=== PATIENT | male | born 1995 | race African-American/Black ===

== ENCOUNTER 2025-08-05 22:50 | Emergency (ER) | payer OTHER, SELFPAY ==
[2025-08-05 22:51] VITALS: BP 137/90; PULSE 122; RESP 18; TEMP 36.8; O2SAT 100
--- NOTE | 2025-08-05 23:42 | PC.NURSE ---
facsimile machine operator gave pt ice pack at this time.
--- NOTE | 2025-08-06 02:12 | ED_ITS ---
HPI - Dental/Oral General Chief complaint: Dental/Oral Stated complaint: dental pain Time Seen by Provider: 08/06/25 02:06 Source: patient Mode of arrival: ambulatory Limitations: no limitations History of Present Illness HPI Narrative: 29-year-old male presenting for dental pain. Patient states that for the past 4 days, he has been having left frontal dental pain. He states that he was eating something a few days ago in his crown fell out. He went to see 1 of the emergency dentist but they were unable to give him his prescriptions as they did not cover Medicaid. He states he was was given prescriptions for clindamycin and ibuprofen. He is allergic to penicillins. Denies fevers, chills, difficulty swallowing. He has an appointment with his dentist on Friday to have the crown placed. Related Data Allergies Allergy/AdvReac Type Severity Reaction Status Date / Time Penicillins Allergy Unknown Verified 08/05/25 22:55 Review of Systems Review of Systems: Gen.: Denies fevers or chills Eyes: Denies eye pain or visual change ENT: Denies congestion Respiratory: Denies shortness of breath or cough CV: Denies chest pain or palpitations GI: Denies abdominal pain nausea, emesis or diarrhea denies burning, urgency, frequency or hematuria Musculoskeletal: Denies back pain or muscle pain Neuro: Denies numbness, tingling, weakness or focal weakness Skin: Denies rash Except as documented, all other systems reviewed and negative Exam Narrative: APPEARANCE: No acute distress, nontoxic, resting in bed HEENT: Normocephalic, atraumatic, OMM. Missing crown to tooth 10, no surrounding fluctuance RESPIRATORY: No respiratory distress CARDIOVASCULAR: Appears well perfused ABDOMINAL: Nondistended MUSCULOSKELETAl: Moves all extremities. No obvious deformities NEURO: Awake and alert. SKIN:: Warm, dry. No rashes lesions or abrasions PSYCHIATRIC: Normal affect/mood, Course Vital Signs Vital signs: Vital Signs Temperature 98.3 F 08/05/25 22:51 Pulse Rate 122 H 08/05/25 22:51 Respiratory Rate 18 08/05/25 22:51 Blood Pressure 137/90 08/05/25 22:51 Pulse Oximetry 100 08/05/25 22:51 Oxygen Delivery Room Air 08/05/25 22:51 Temperature 98.2 F 08/06/25 02:43 Pulse Rate 106 H 08/06/25 02:43 Respiratory Rate 16 08/06/25 02:43 Blood Pressure 138/99 H 08/06/25 02:43 Pulse Oximetry 99 08/06/25 02:43 Oxygen Delivery Room Air 08/06/25 02:35 MDM - Dental/Oral MDM Narrative Medical decision making narrative: 29-year-old male presenting for dental pain. On initial evaluation, patient was in no acute distress, afebrile, hemodynamically stable. He did have a missing crown he has noted above. I no areas of fluctuance or drainage. Vital signs stable except for noted mild tachycardia likely related to pain. Patient will be given prescriptions for clindamycin, Tylenol, ibuprofen. He has an appointment on Friday with his dentist to potentially have a crown replaced which I encouraged him to go to. Patient is agreeable to this plan. Given strict return precautions. Differential Diagnosis Differential diagnosis: Likely gingival abscess, dental caries, toothache, dental abscess and fracture of tooth Discharge Plan Discharge Clinical Impression: Toothache Patient Disposition: Home Condition: Stable Instructions: Antibiotic Form, Toothache (ED) Additional Instructions: Follow-up with your dentist on Friday as scheduled. Take clindamycin as prescribed. Take Tylenol and ibuprofen for ear pain. Return to the ED for any new or worsening symptoms. For pain, discomfort or temperature greater than or equal to 100.8 ?F please alternate the following 2 medications as needed. First medication- acetaminophen/Tylenol- 1000mg every 6-8 hours as needed for above indications. Second medication- ibuprofen/Motrin-600mg every 6-8 hours as needed for above indication. Patient Language: Armenian Prescriptions: New clindamycin HCl [Cleocin HCl] 300 mg capsule 300 mg PO BID Qty: 14 0RF acetaminophen [Tylenol Extra Strength] 500 mg tablet 500 mg PO Q6H PRN (Reason: fever or pain) Qty: 180 0RF ibuprofen 600 mg tablet 600 mg PO Q6H PRN (Reason: fever or pain) Qty: 90 0RF Follow-up/Referrals: PHYSICIAN,SYSTEMS SOFTWARE ENGINEER [Primary Care Provider, Internal Medicine]
--- OUTSIDE RECORDS SUMMARY | 2025-08-06 02:28 | XMS_ITS | Encounter Summary ---
Author Organization [facility] Address [address] [place] [address] Care Team Providers Care Director Of Content Marketing Name Role Phone Jeff Harris COST ACCOUNTING ANALYST-FOOT CASTER Primary Care Provider Encounter Details Date Type Department Care Team (Late st Contact Info) Description 08/17/2021 Telephone [facility] [address] [place] [address] Neris Landis MD [address] [phone] Social History Tobacco Use Types Packs/Day Years Used Date Smoking Tobacco: Never Smokeless Tobacco: Never Alcohol Use Standard Drinks/Week Comments No 0 (1 standard drink = 0.6 oz pur e alcohol) Sex and Gender Information Value Date Recorded Sex Assigned at Not on file Legal Sex Male 6:53 PM POLITICAL ANTHROPOLOGIST Gender Identity Not on file Sexual Orientation Not on file documented as of this encounter Plan of Treatment Not on file documented as of this encounter Visit Diagnoses Not on filedocumented in this encounter Additional Health Concerns Infection Onset Date Last Indicated Resolved Time COVID-19 Under Investigation 11/28/2022 11/28/2022 11/28/2022 10:05 PM POLITICAL ANTHROPOLOGIST COVID-19 Confirmed 11/28/2022 11/28/2022 4:33 AM POLITICAL ANTHROPOLOGIST documented as of this encounter Care Teams Director Of Content Marketing Relationship Specialty Start Date End Date Jeff Harris APRN-FOOT CASTER PCP - General 03/30/21 documented as of this encounter
--- OUTSIDE RECORDS SUMMARY | 2025-08-06 02:28 | XMS_ITS | Encounter Summary ---
Author Organization [facility] Address [address] [place] [address] Care Team Providers Care Managed Services Consultant Name Role Phone Jeff Harris UNIFORM FORCE CAPTAIN-TRUCK TECHNICIAN Primary Care Provider Encounter Details Date Type Department Care Team (Late st Contact Info) Description 07/13/2021 Telephone [facility] [address] [place] [address] Neris Landis MD [address] [phone] Social History Tobacco Use Types Packs/Day Years Used Date Smoking Tobacco: Never Smokeless Tobacco: Never Alcohol Use Standard Drinks/Week Comments No 0 (1 standard drink = 0.6 oz pur e alcohol) Sex and Gender Information Value Date Recorded Sex Assigned at Not on file Legal Sex Male 6:53 PM BIT GRINDER Gender Identity Not on file Sexual Orientation Not on file documented as of this encounter Plan of Treatment Not on file documented as of this encounter Visit Diagnoses Not on filedocumented in this encounter Additional Health Concerns Infection Onset Date Last Indicated Resolved Time COVID-19 Under Investigation 11/28/2022 11/28/2022 11/28/2022 10:05 PM BIT GRINDER COVID-19 Confirmed 11/28/2022 11/28/2022 4:33 AM BIT GRINDER documented as of this encounter Care Teams Managed Services Consultant Relationship Specialty Start Date End Date Jeff Harris APRN-TRUCK TECHNICIAN PCP - General 03/30/21 documented as of this encounter
--- OUTSIDE RECORDS SUMMARY | 2025-08-06 02:28 | XMS_ITS | Encounter Summary ---
Author Organization [facility] Address [address] [place] [address] Care Team Providers Care Academic Support Center Director Name Role Phone Jeff Harris HOURLY CAREGIVER-FLATWORK FEEDER Primary Care Provider Encounter Details Date Type Department Care Team (Late st Contact Info) Description 07/09/2021 Telephone [facility] [address] [place] [address] Neris Landis MD [address] [phone] Social History Tobacco Use Types Packs/Day Years Used Date Smoking Tobacco: Never Smokeless Tobacco: Never Alcohol Use Standard Drinks/Week Comments No 0 (1 standard drink = 0.6 oz pur e alcohol) Sex and Gender Information Value Date Recorded Sex Assigned at Not on file Legal Sex Male 6:53 PM CASKET UPHOLSTERER Gender Identity Not on file Sexual Orientation Not on file documented as of this encounter Plan of Treatment Not on file documented as of this encounter Visit Diagnoses Not on filedocumented in this encounter Additional Health Concerns Infection Onset Date Last Indicated Resolved Time COVID-19 Under Investigation 11/28/2022 11/28/2022 11/28/2022 10:05 PM CASKET UPHOLSTERER COVID-19 Confirmed 11/28/2022 11/28/2022 4:33 AM CASKET UPHOLSTERER documented as of this encounter Care Teams Academic Support Center Director Relationship Specialty Start Date End Date Jeff Harris APRN-FLATWORK FEEDER PCP - General 03/30/21 documented as of this encounter
--- OUTSIDE RECORDS SUMMARY | 2025-08-06 02:29 | XMS_ITS | Clinical Summary ---
Author Organization [facility] Address [address] [place] [address] Care Team Providers Care Investment Banking Associate Name Role Phone Jeff Harris SUPERINTENDENT MEASUREMENT-EDUCATIONAL ADVISER Primary Care Provider Source Comments [facility],non-owned Affiliates and Associated Physician Practices is amultiple site organization consisting of ambulatory clinics and hospital sitesin [place], [place], [place] and [place]. This disclosure is being madepursuant to the Care Everywhere program and may not contain all information available regarding this patient. Last updated 18.[facility] Allergies Active Allergy Reactions Criticality Noted Date Comments Coconut Oil Itching,Eye Discomfort 03/16/2021 Medications * This document contains information received from the source organization and may not represent a complete record from that organization. * Be aware that medications may not be up to date on this document. Alwaysverify current medications with the patient. pantoprazole EC (Protonix) 20 MG tabletIndications:Ga stroesophageal reflux disease without esophagitis Take 1 (one) tablet by mouth once daily 90 tablet 06/26/20 23 Active psyllium 48.57 % powderIndications:Pa in associated with defecation Take 3 g by mouth once daily 1254 g 3 06/26/20 23 Active Additional Information Patient not taking.Reported on 08/28/2023 bictegravir-emtricit abine-tenofovir (Biktarvy) 50-200-25 MGIndications:Human immunodeficiency virus (HIV) disease ([facility]) Take 1 (one) tablet by mouth once daily 30 tablet 3 08/28/20 23 Active sulfamethoxazole-tri methoprim (Bactrim; Septra) 400-80 MG tabletIndications:AI DS (acquired immune deficiency syndrome) (HCC) Take 1 (one) tablet by mouth once daily 30 tablet 3 08/28/20 23 Active itraconazole (Sporanox) 10 MG/ML oral solutionIndications: Disseminated histoplasmosis,Mesen teric lymphadenopathy TAKE 20 ML BY MOUTH TWICE DAILY 1200 mL 3 08/28/20 23 Active sertraline (Zoloft) 50 MG tabletIndications:Ma gisel depressive disorder, single episode with anxious distress Take 0.5 (one-half) tablet by mouth once daily for 7 days, THEN 1 (one) tablet once daily for 83 days. 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 Reports anorexia, insomnia, and lack of motivation towards Pleasurable things. Assessment & Plan (11/21/2022 9:17 AM WRAPPER HAND): Discussed need for sleep hygiene, regular exercise, and healthful diet Encouraged regualr talk therapy: Refer to [facility] Discussed resuming sertraline: Pt to consider Assessment & Plan (11/13/2021 10:15 AM WRAPPER HAND): Begin Fluoxietine: FU in 3wk, 6wk, and three months to efficacy Begin talk therapy Gastroesophageal reflux disease without esophagi tis 05/03/2021 Assessment & Plan (11/21/2022 9:15 AM WRAPPER HAND): DC omeprazole and begin pantoprazole Discussed importance of GERD-friendly diet and eating habits Assessment & Plan (05/03/2021 1:05 PM CDT): Omeprazole 20mg Daily Dietary change Grade IV hemorrhoids 04/12/2021 Assessment & Plan (04/12/2021 12:33 PM CDT): Continue Sitz bath, witch mario, and cool compress GI Consult at colonoscopy appt/ surg removal Colitis 04/12/2021 Assessment & Plan (11/13/2021 10:13 AM WRAPPER HAND): continue current Tx, food journal,and isolation of triggers Keep FU appts with GI and Colorectal Vaccine counseling 04/12/2021 Overview (04/12/2021): Pt resistent to COVID vax rekated to fear Major Appliance Assembly Supervisor to risk VS bebefit of vaccine Vs Infection Assessment & Plan (11/21/2022 9:17 AM WRAPPER HAND): Need pediatric record for HPV sent, Pt to complete Discussed risk V benefits of COVID vaccines Abscess of anal and rectal regions 03/16/2021 Assessment & Plan (11/13/2021 10:12 AM WRAPPER HAND): I&D Augmentin X7 days Discussed home wound care, S&S of infection, etc. Assessment & Plan (05/03/2021 1:00 PM CDT): I&D new abscess ABX tx Keep appt with colorectal Immunizations Immunization Administration Dates Next Due INFLUENZA VACCINE, TRIV. (AF LURIA, FLUZONE TRIVALENT; 6MO+) (IIV3) 08/14/2018 Covid Moderna primary monova lent 12+ yr 0.5mL 08/12/2021,07/15/2021 DTaP VACCINE IM (6wk-6yrs) 04/26/2003,,09/26/1998,04/05,01/06/1998,1997 FLU, HISTORIC VACCINE 07/25/2009 HEP A PED/ADULT VACCINE 06/03/2008,05/27/2006 HEP A PEDS 2 DOSE 06/03/2008,05/27/2006 HEP B VACCINE, PED/ADOL 1997,1997 HIB Hep B 04/05/1998 HIB VACCINE 09/26/1998,01/06/1998,1997 Hep B, Adjuvanted 01/31/2023 Human Papilloma Virus Nineva lent Vaccine 08/28/2023,01/31/2023,12/06/2022 INFLUENZA VACCINE 09/11/2021,07/25/2009 INFLUENZA VACCINE, QUADR. (F LUZONE; FLULAVAL; FLUARIX; AFLURIA QUADRIVALENT; 6MO+), 0.5 ML (IIV4) 08/28/2023 MENINGOCOCCAL ACWY (MCV4P) VAC IM 02/14/2009 MENINGOCOCCAL ACWY MENVEO 05/22/2012 MMR VACCINE 05/16/2003,05/05/2002,09/26/1998 Meningococcal ACWY (Menquadfi) Vac IM 01/31/2023 ,12/06/2022 PNEUMOCOCCAL PCV20 CONJ VAC IM 12/06/2022 PNEUMOCOCCAL PCV7 CONJ, PEDS 05/05/2002,02/17/20 01 POLIO IPV 04/26/2003, 2,04/05/1998,01/06,1997 TDAP (7yrs+) 11/12/2021 TDAP, HISTORIC VACCINE 05/22/2012,02/14/2009 VARICELLA 06/03/2008,09/26/1998 iNFLUENZA VACCINE, RECOM-STRANGE, QUADR. (FLUBLOCK QUADRIVALENT; 18Y+) (RIV4) 11/20/2022 Family History Medical History Relation Name Comments Hyperlipidemia Father Hypertension Father Hypertension Mother Relation Name Status Comments Brother Alive Father Alive Maternal Grandfather Alive Maternal Grandmother Alive Mother Alive Paternal Grandfather Paternal Grandmother Sister 1 Alive Sister 2 Alive Social History Tobacco Use Types Packs/Day Years Used Date Smoking Tobacco: Never Smokeless Tobacco: Never Tobacco Cessation:Counseling Given: Not Answered Alcohol Use Standard Drinks/Week Comments No 0 (1 standard drink = 0.6 oz pur e alcohol) AUDIT-C Answer Date Recorded Q1: How often do you have a drink containing alcohol? Never 12/28/2022 Q2: How many drinks containi ng alcohol do you have on a typical day when you are drinking? Patient does not drink Q3: How often do you have si x or more drinks on one occasion? Never 12/28/2022 Overall Financial Resource Strain (CARDIA) Answe r Date Recorded How hard is it for you to pa y for the very basics like food, housing, medical care, and heating? Patient declined 01/16/2023 PHQ-2 Answer Date Recorded Patient Health Questionnaire-2 Score 2 12/11/2023 [facility] - Occupational Stress Questionnaire Answer Date Recorded Do you feel stress - tense, restless, nervous, or anxious, or unable to sleep at night because your mind is troubled all the time - these days? Patient declined 01/16/2023 Hunger Vital Sign Answer Date Recorded Within the past 12 months, y ou worried that your food would run out before you got the money to buy more. Patient declined Within the past 12 months, t he food you bought just didn't last and you didn't have money to get more. Patient declined 03/2023 PRAPARE - Transportation Answer Date Re corded In the past 12 months, has l ack of transportation kept you from medical appointments or from getting medications? Patient declined 01/16/2023 In the past 12 months, has l ack of transportation kept you from meetings, work, or from getting things needed for daily living? Patient declined 01/16/2023 Housing Stability Vital Sign Answer Ken e Recorded In the last 12 months, was t here a time when you were not able to pay the mortgage or rent on time? Patient refused 01/17/20 23 In the last 12 months, how many places have you lived? 1 01/16/2023 In the last 12 months, was t here a time when you did not have a steady place to sleep or slept in a retirement (including now)? Patient refused 01/16/2023 Sex and Gender Information Value Date Recorded Sex Assigned at Not on file Legal Sex Male 6:53 PM WRAPPER HAND Gender Identity Not on file Sexual Orientation Not on file Last Filed Vital Signs Vital Sign Reading Time Taken Comments Blood Pressure 114/75 12/11/2023 8:25 AM WRAPPER HAND Pulse 65 12/11/2023 8:25 AM WRAPPER HAND Temperature 36.4 C (97.6 F) 12/11/2023 8:25 AM WRAPPER HAND Respiratory Rate 18 08/28/2023 9:39 AM WRAPPER HAND Oxygen Saturation 99% 08/28/2023 9:39 AM WRAPPER HAND Inhaled Oxygen Concentration - - Weight 88.9 kg (196 lb) 12/11/2023 8:25 AM WRAPPER HAND Height 160 cm (5' 3) 08/28/2023 9:39 AM WRAPPER HAND Body Mass Index 34.72 08/28/2023 9:39 AM WRAPPER HAND Plan of Treatment Health Maintenance Due Date Last Done Comments ZOSTER VACCINE (1 of 2) 2016 COVID-19 VACCINE (3 - Moderna risk series) 09/09/2021 08/12/2021, 07/15/2021 DEPRESSION SCREENING 10/13/2024 12/11/2023, 08/18/2023, 08/18/2023, Additional history exists INFLUENZA VACCINE (#1) 2025 , 11/20/2022, 09/11/2021, Additional history exists MENINGOCOCCAL GROUPS A/C/Y/W VACCINE (4 - Risk 2-dose series) 02/01/2028 01/31/2023, 12/06/2022, 05/22/2012, Additional history exists DTAP/TDAP/TD VACCINES (9 - Td or Tdap) 11/12/2031 11/12/2021, 05/22/2012, 02/14/2009, Additional history exists HIB VACCINE Completed 09/26/1998, 03/14, 01/06/1998, Additional history exists HEPATITIS C SCREENING Completed 12/06/2022 PNEUMOCOCCAL VACCINE Completed 12/06/2022, 05/05/2002, 02/16/2001 HEPATITIS B VACCINE Completed 01/31/2023, 04/05/1998, 1997, Additional history exists HPV VACCINE Completed 08/28/2023, 01/12, 12/06/2022 MENINGOCOCCAL (Group B) VACCINE SHARED DECISION-MAKING Aged Out No longer eligible based on patient's age to complete this topic Goals Goal Patient Goal Type Associated Problems Recent Progress Patient-Stated? Author Safety General On track( 12:58 PM CDT) Essie Greco, RN Note: Expected end date: ongoing Interventions: Be aware of medications that could predispose you to falling Wear non-skid/rubber sole footwear Wear glasses/hearing aid Medication Management General On track( 12:58 PM CDT) Essie Greco, RN Note: Expected end date: ongoing Interventions: Take all medications as prescribed Let your doctor know right away about any changes in your medications Make sure to request a refill of your medication at least one week prior to your last dose Try the following to manage nausea: Plan when to eat and drink Eat small meals and snacks Have food and drinks that are warm or cool Talk with your doctor or nurse about medications you can take Procedures Procedure Name Priority Date/Time Associated Diagnosis Comments HEPATITIS C AB W/RFLX TO HCV RNA QN PCR Routine 12/06/2022 12:00 PM WRAPPER HAND Routine screening for STI (sexually transmitted infection) Immunity status testing from Last 3 Months or Most Recently Relevant to Health Maintenance Results * Hep C Antibody with reflex ([facility]) (12/06/2022 12:00 PM WRAPPER HAND) Hepatitis C Antibody NON-REACTI VE NON-REACT [facility] Signal to Cut-Off 0.29 <1.00 [facility] Comment: HCV antibody was non-reactive. There is no laboratory evidence of HCV infection. In most cases, no further action is required. However, if recent HCV exposure is suspected, a test for HCV RNA (test code 79809) is suggested. For additional information please refer to http://education.[employer]/faq/LPJ86w7 (This link is being provided for informational/ educational purposes only.) Test Performed at: [facility] [id number] [id number] SUSANA NAQVI MD Blood BLOOD SPECIMEN / Unknown 12/06/2022 12:00 PM WRAPPER HAND 12/07/2022 6:28 AM WRAPPER HAND us Aye VO LAB - CHEMISTRY ORDERAB LES Final Result [facility] [address] [place] [address] from Last 3 Months or Most Recently Relevant to Health Maintenance Advance Directives * Full Code (Latest Code Status on File) Date Activated Date Inactivated Comments 12/27/2022 10:18 PM 01/17/2023 6:06 PM * Full Code Date Activated Date Inactivated Comments 03/16/2021 2:48 AM 03/16/2021 4:17 PM Care Teams Investment Banking Associate Relationship Specialty Start Date End Date Jeff Harris APRN-CNP PCP - General 03/30/21
--- OUTSIDE RECORDS SUMMARY | 2025-08-06 02:29 | XMS_ITS | Encounter Summary ---
Author Organization [facility] Health Address [address] [place] [address] Care Team Providers Care Haul Driver Name Role Phone StevenJeff CERTIFIED GENETIC COUNSELOR-TRAINING ADMINISTRATOR Primary Care Provider Encounter Details Date Type Department Care Team (Late st Contact Info) Description 03/11/2023 Telephone [facility] - Centralized Scheduling [address] [place] [phone] Rajendra Glynn MD [address] [facility] [place] [address] Social History Tobacco Use Types Packs/Day [...] Patient declined 01/16/2023 PHQ-2 Answer Date Recorded PHQ2 TOTAL SCORE 0 03/06/2023 [place] [facility] - Occupational Stress [...] place to sleep or slept in a senior living (including now)? Patient refused 01/16/2023 Sex and Gender Information Value Date Recorded Sex Assigned at Not on file Legal Sex Male 6:53 PM PRODUCT DEVELOPMENT CARPENTER Gender Identity Not on file Sexual Orientation Not on file COVID-19 Exposure Response Date Recorded In the last 10 days, have yo u been in contact with someone who was confirmed or suspected to have Coronavirus/COVID-19? No / Unsure 03/06/2023 9:30 AM CDT documented as of this encounter Functional Status * Is person deaf or have serious hearing difficulty? Answer Date of Assessment Author No 02/03/2023 1:11 PM CDT Aye Yoon RN * Is person blind or have serious difficulty seeing? Answer Date of Assessment Author No 02/03/2023 1:11 PM CDT Aye Yoon RN * Does person have serious difficulty walking/climbing stairs? Answer Date of Assessment Author No 02/03/2023 1:11 PM CDT Aye Yoon RN * Does person have difficulty dressing/bathing? Answer Date of Assessment Author No 02/03/2023 1:11 PM CDT Aye Yoon RN * Does person have difficulty doing errands alone? Answer Date of Assessment Author No 02/03/2023 1:11 PM CDT Aye Yoon RN documented as of this encounter Mental Status * Does person have difficulty concentrating/remembering/making decisions? Answer Entry Date Author No 02/03/2023 1:11 PM CDT Aye Yoon RN documented in this encounter Miscellaneous Notes * Telephone Encounter - Lois Fenton - 03/11/2023 12:32 PM CDT Pt Barney wanted the To give him a call he didn't state why just that he thought the Might have called him. I checked his chart I didn't find any documentation stating if the Called him. Pt callback is [phone] documented in this encounter Plan of Treatment Not on file documented as of this encounter Goals Goal Patient Goal Type Associated Problems Recent Progress Patient-Stated? Author Safety General On track( 12:58 PM CDT) No Essie Vela RN Note: Expected end date: ongoing Interventions: Be aware of medications that could predispose you to falling Wear non-skid/rubber sole footwear Wear glasses/hearing aid Medication Management General On track( 12:58 PM CDT) Essie Greco RN Note: Expected end date: ongoing Interventions: [...] or nurse about medications you can take documented as of this encounter Visit Diagnoses Not on filedocumented in this encounter Care Teams Haul Driver Relationship Specialty Start Date End Date Jeff Harris APRN-MICHAEL PCP - General 03/30/21 documented as of this encounter
--- OUTSIDE RECORDS SUMMARY | 2025-08-06 02:29 | XMS_ITS | Encounter Summary ---
Author Organization [facility] Address [address] [facility] [place] [address] Care Team Providers Care Circuit Recorder Name Role Phone Jeff Harris [place] BOX TRUCK WASHER-SPARMAKER Primary Care Provider Encounter Details Date Type Department Care Team (Late st Contact Info) Description 12/05/2021 Telephone [facility] [address] [place] [address] Neris Landis MD [address] [phone] Social History Tobacco Use Types Packs/Day Years Used Date Smoking Tobacco: Never Smokeless Tobacco: Never Alcohol Use Standard Drinks/Week Comments No 0 (1 standard drink = 0.6 oz pur e alcohol) PHQ-2 Answer Date Recorded PHQ2 TOTAL SCORE 3 11/12/2021 Sex and Gender Information Value Date Recorded Sex Assigned at Not on file Legal Sex Male 6:53 PM STEEL PICKLER Gender Identity Not on file Sexual Orientation Not on file documented as of this encounter Plan of Treatment Not on file documented as of this encounter Visit Diagnoses Not on filedocumented in this encounter Additional Health Concerns Infection Onset Date Last Indicated Resolved Time COVID-19 Under Investigation 11/28/2022 11/28/2022 11/28/2022 10:05 PM STEEL PICKLER COVID-19 Confirmed 11/28/2022 11/28/2022 4:33 AM STEEL PICKLER documented as of this encounter Care Teams Circuit Recorder Relationship Specialty Start Date End Date Jeff Harris, BOX TRUCK WASHER-SPARMAKER PCP - General 03/30/21 documented as of this encounter
[2025-08-06 02:35] VITALS: BP 138/99; PULSE 106; RESP 18; TEMP 36.8; O2SAT 99
[2025-08-06] MEDS: KETOROLAC 30 MG/ML VIAL (*BKC) IM (02:36)
[2025-08-06] MEDS: CLINDAMYCIN HCL 150 MG CAP 300 MG PO (02:36)
[2025-08-06 02:43] VITALS: BP 138/99; PULSE 106; RESP 16; TEMP 36.8; O2SAT 99
== END 2025-08-06 02:45 | disposition home or self-care (01) ==
PROVIDERS: Emergency Provider Student in an Organized Health Care Education/Training Program
DX: K08.89 Other specified disorders of teeth and supporting structures (principal)
CPT/HCPCS: 96372; 99283; J1885

== ENCOUNTER 2025-08-08 20:08 | Emergency (ER) | payer OTHER, SELFPAY ==
--- OUTSIDE RECORDS SUMMARY | 2025-08-08 20:10 | XMS_ITS | Encounter Summary ---
Author Organization [facility] Address [address] [facility] [place] [address] Care Team Providers Care Target Protection Specialist Name Role Phone Jeff Harris FULFILLMENT REPRESENTATIVE-LIQUID LOADER Primary Care Provider Encounter Details Date Type Department Care Team (Late st Contact Info) Description 07/13/2021 Telephone [facility] [address] [place] [address] Neris Landis MD [address] [phone] Social History Tobacco Use Types Packs/Day Years Used Date Smoking Tobacco: Never Smokeless Tobacco: Never Alcohol Use Standard Drinks/Week Comments No 0 (1 standard drink = 0.6 oz pur e alcohol) Sex and Gender Information Value Date Recorded Sex Assigned at Not on file Legal Sex Male 6:53 PM PACKAGE DRIER Gender Identity Not on file Sexual Orientation Not on file documented as of this encounter Plan of Treatment Not on file documented as of this encounter Visit Diagnoses Not on filedocumented in this encounter Additional Health Concerns Infection Onset Date Last Indicated Resolved Time COVID-19 Under Investigation 11/28/2022 11/28/2022 11/28/2022 10:05 PM PACKAGE DRIER COVID-19 Confirmed 11/28/2022 11/28/2022 4:33 AM PACKAGE DRIER documented as of this encounter Care Teams Target Protection Specialist Relationship Specialty Start Date End Date Jeff Harris APRN-LIQUID LOADER PCP - General 03/30/21 documented as of this encounter
--- OUTSIDE RECORDS SUMMARY | 2025-08-08 20:10 | XMS_ITS | Encounter Summary ---
Author Organization [facility] Address [address] [facility] [place] [address] Care Team Providers Care Lamp Shade Joiner Name Role Phone Jeff Harris DOGGER-NEWS ASSIGNMENT EDITOR Primary Care Provider Encounter Details Date Type Department Care Team (Late st Contact Info) Description 08/17/2021 Telephone [facility] [address] [place] [address] Neris Landis MD [address] [phone] Social History Tobacco Use Types Packs/Day Years Used Date Smoking Tobacco: Never Smokeless Tobacco: Never Alcohol Use Standard Drinks/Week Comments No 0 (1 standard drink = 0.6 oz pur e alcohol) Sex and Gender Information Value Date Recorded Sex Assigned at Not on file Legal Sex Male 6:53 PM CLINIC COORDINATOR Gender Identity Not on file Sexual Orientation Not on file documented as of this encounter Plan of Treatment Not on file documented as of this encounter Visit Diagnoses Not on filedocumented in this encounter Additional Health Concerns Infection Onset Date Last Indicated Resolved Time COVID-19 Under Investigation 11/28/2022 11/28/2022 11/28/2022 10:05 PM CLINIC COORDINATOR COVID-19 Confirmed 11/28/2022 11/28/2022 4:33 AM CLINIC COORDINATOR documented as of this encounter Care Teams Lamp Shade Joiner Relationship Specialty Start Date End Date Jeff Harris APRN-NEWS ASSIGNMENT EDITOR PCP - General 03/30/21 documented as of this encounter
--- OUTSIDE RECORDS SUMMARY | 2025-08-08 20:10 | XMS_ITS | Encounter Summary ---
Author Organization [facility] Health Address [address] [facility] [place] [address] Care Team Providers Care Marble Polisher Name Role Phone StevenJeff SUPERVISOR MONEY ROOM-ROD HANGER Primary Care Provider Encounter Details Date Type Department Care Team (Late st Contact Info) Description 03/11/2023 Telephone [facility] - Centralized Scheduling [address] [place] [phone] Rajendra Glynn MD [address] [facility] [place] [address] Social History Tobacco Use Types [...] Date Recorded PHQ2 TOTAL SCORE 0 03/06/2023 [place] [facility] Occupat ional Health - Occupational Stress [...] place to sleep or slept in a long term (including now)? Patient refused 01/16/2023 Sex and Gender Information Value Date Recorded Sex Assigned at Not on file Legal Sex Male 6:53 PM HOME THEATER SPECIALIST Gender Identity Not on file Sexual Orientation [...] if the Called him. Pt callback is [phone] documented in this encounter Plan of Treatment [...] on filedocumented in this encounter Care Teams Marble Polisher Relationship Specialty Start Date End Date Jeff Harris APRN-MICHAEL PCP - General 03/30/21 documented as of this encounter
--- OUTSIDE RECORDS SUMMARY | 2025-08-08 20:10 | XMS_ITS | Encounter Summary ---
Author Organization [facility] Address [address] [place] [address] Care Team Providers Care Milk Condenser Name Role Phone Aye Mccollum SEAMER PANTY HOSE Primary Care Provider [phone] Reason for Visit * Reason Onset Date Comments Results Review 08/04/2025 Encounter Details Date Type Department Care Team (Late st Contact Info) Description 08/04/2025 Results Follow-Up [facility] [address] [place] [address] Aye Mccollum NP [address] [place] [address] Social History Tobacco Use Types Packs/Day Years Used Date Smoking Tobacco: Never Smokeless Tobacco: Never Alcohol Use Standard Drinks/Week Comments Not Currently 0 (1 standard drink = 0.6 oz pur e alcohol) Social Connections Answer Date Recorded Do you have someone you could call if you needed help? 2 07/13/2025 Financial Resource Strain Answer Date R ecorded How hard is it for you to pa y for the very basics like food, housing, heating, medical care, and medications? 2 07/06 Stress Answer Date Recorded Stress 0 01/01/2024 Physical Activity Answer Date Recorded Physical Activity 0 01/01/2024 Food Insecurity Answer Date Recorded Within the past 12 months, y ou worried that your food would run out before you got money to buy more. 2 07/06/2025 Transportation Needs Answer Date Record ed In the past 12 months, has l ack of transportation kept you from medical appointments, meetings, work or from getting things needed for daily living? 2 07/06/2025 Housing Stability Answer Date Recorded What is your living situation today? 2 07/06/2025 Safety and Environment Answer Date Aquiles rded How often does anyone, inclu ding family and friends, physically hurt you? 1 07/13/2025 Utilities Answer Date Recorded Hard to pay for: Utilities 2 08/11 Employment Answer Date Recorded Stress 0 01/06/2024 Sex and Gender Information Value Date Recorded Sex Assigned at Male 01/12/2024 10:50 AM PDT Legal Sex Male 10:08 AM PDT Gender Identity Male 01/12/2024 10:50 AM PDT Sexual Orientation Choose not to disclose 2024 1:32 PM PDT documented as of this encounter Plan of Treatment Upcoming Encounters Date Type Department Care Team (Late st Contact Info) Description 08/15/2025 3:00 PM FLOATING DERRICK OPERATOR Behavioral Health Visit [address] [phone] Kelsy Méndez [address] [address] 08/22/2025 3:00 PM FLOATING DERRICK OPERATOR Behavioral Health Visit [address] [phone] Kelsy Méndez [address] [address] 08/29/2025 3:00 PM FLOATING DERRICK OPERATOR Behavioral Health Visit [address] [phone] Kelsy Méndez LCSW [address] [place] [address] 09/05/2025 3:00 PM FLOATING DERRICK OPERATOR Behavioral Health Visit [address] [phone] Kelsy Méndez [address] [address] documented as of this encounter Visit Diagnoses Not on filedocumented in this encounter Additional Health Concerns Assessment Noted Time PHQ-9 Depression Total Score: 20 025 2:55 PM PDT A Depression follow-up plan has been documented for the patient 07/06/2025 10:22 AM PDT documented as of this encounter Care Teams Milk Condenser Relationship Specialty Start Date End Date Aye Mccollum NP [address] [place] [address] PCP - General Adult Health 01/06/24 documented as of this encounter
--- OUTSIDE RECORDS SUMMARY | 2025-08-08 20:10 | XMS_ITS | Clinical Summary ---
Author Organization [facility] Address [address] [place] [address] Care Team Providers Care Licensed Weigher Name Role Phone Aye Mccollum PHILLIP Primary Care Provider [phone] Source Comments PLEASE NOTE, if this patient is a minor, it may be UNLAWFUL to discuss sensitive information that is contained in these records (such as FAMILY PLANNING, MENTAL HEALTH or SUBSTANCE ABUSE) with the minor patient's parent or other person without the patient's specific authorization.[facility] Allergies Active Allergy Reactions Criticality Noted Date Comments Coconut Oil Itching 03/16/2021 Other Reaction(s): Eye Discomfort Medications ibuprofen 800 mg tablet Take 800 mg by mouth 3 (three) times daily as needed 05/10/20 24 Active ondansetron ODT (ZOFRAN-ODT) 4 mg disintegrating tabletIndications: Nausea Take 1 Tablet by mouth every 8 (eight) hours as needed for nausea. 60 Tablet 1 5 12:19 PM PDT 03/02/20 25 Active pantoprazole (PROTONIX) 20 mg EC tabletIndications: Gastroesophageal reflux disease without esophagitis Take 1 Tablet by mouth every morning before breakfast. Please separate 2h before or 2h after itraconazole. 30 Tablet 3 5 8:58 AM PDT 03/03/20 25 Active minoxidiL 5 % foamIndications:Ma le pattern baldness Apply topically 2 (two) times daily. 60 g 3 07/06/20 25 Active Additional Information Patient not taking.Reported on 07/27/2025 itraconazole (SPORANOX) 10 mg/mL solutionIndication s:Disseminated histoplasmosis Take 20 mL by mouth 2 (two) times daily. 1200 mL 3 07/06/20 25 Active ergocalciferol (VITAMIN D-2) 1,250 mcg (50,000 unit) capsuleIndications :Vitamin D deficiency Take 1 Capsule by mouth once a week. 12 Capsule 5 7:11 AM PDT 07/07/20 25 Active cyanocobalamin (VITAMIN B-12) 1,000 mcg tablet Take 1 Tablet by mouth once daily. 30 Tablet 3 5 7:11 AM PDT 07/07/20 25 Active BIKTARVY 50-200-25 mg tabIndications:Cur rently asymptomatic HIV infection, with history of HIV-related illness TAKE 1 TABLET BY MOUTH ONCE DAILY 30 Tablet 5 8:58 AM PDT 07/27/20 25 Active buPROPion HCL (WELLBUTRIN XL) 300 mg 24 hr tabletIndications: Adjustment disorder with mixed anxiety and depressed mood TAKE 1 TABLET BY MOUTH EVERY MORNING 30 Tablet 5 8:58 AM PDT 07/27/20 25 Active phentermine (IONAMIN) 15 mg capsuleIndications :BMI 36.0-36.9,adult Take 1 Capsule by mouth every morning for 15 days. Max Daily Amount: 15 mg 15 Capsule 5 8:58 AM PDT 07/27/20 25 025 Active BIKTARVY 50-200-25 mg tabIndications:Cur rently asymptomatic HIV infection, with history of HIV-related illness TAKE 1 TABLET BY MOUTH ONCE DAILY 30 Tablet 5 1:14 PM PDT 06/27/20 25 025 Discontin ued(Reord er (E-Cancel Not Sent)) buPROPion HCL (WELLBUTRIN XL) 300 mg 24 hr tabletIndications: Adjustment disorder with mixed anxiety and depressed mood TAKE 1 TABLET BY MOUTH EVERY MORNING 30 Tablet 5 1:14 PM PDT 06/27/20 25 025 Discontin ued(Reord er (E-Cancel Not Sent)) Active Problems Problem Noted Date Diagnosed Date Persistent depressive disorder 07/13/2025 Acquired immunodeficiency syndrome 01/12/2023 Human immunodeficiency virus (HIV) infection 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 Reports anorexia, insomnia, and lack of motivation towards Pleasurable things. Last Assessment & Plan: Discussed need for sleep hygiene, regular exercise, and healthful diet Encouraged regualr talk therapy: Refer to [facility] Discussed resuming sertraline: Pt to consider Gastroesophageal reflux disease without esophagi tis 05/03/2021 Overview (01/07/2024): Last Assessment & Plan: DC omeprazole and begin pantoprazole Discussed importance of GERD-friendly diet and eating habits Resolved Problems Problem Noted Date Diagnosed Date Resolved Date Adjustment disorder with mix ed anxiety and depressed mood 08/02/2024 01/26/2025 Sepsis 01/12/2023 07/27/2025 Microcytic anemia 01/12/2023 07/27/2025 Acute kidney injury 01/12/2023 07/27/20 25 Lymphadenopathy 01/07/2023 07/27/2025 EBV infection 01/07/2023 07/27/2025 Cztfdno-yv-vvz 01/11/2022 07/27/2025 Grade IV hemorrhoids 04/12/2021 025 Overview (01/07/2024): Last Assessment & Plan: Continue Sitz bath, witch mario, and cool compress GI Consult at colonoscopy appt/ surg removal Colitis 04/12/2021 07/27/2025 Overview (01/07/2024): Last Assessment & Plan: continue current Tx, food journal,and isolation of triggers Keep FU appts with GI and Colorectal Abscess of anal and rectal regions 03/16/2021 07/27/2025 Overview (01/07/2024): Last Assessment & Plan: I&D Augmentin X7 days Discussed home wound care, S&S of infection, etc. Encounters Date Type Department Care Team Description 08/04/2025 Results Follow-Up [address] [phone] Aye Mccollum NP 07/27/2025 10:00 AM CDT BH/MH Visits [address] [phone] Kelsy Méndez LCSW 07/27/2025 9:30 AM CDT Office Visit [address] [phone] Aye Mccollum NP 07/22/2025 BH/MH TELEPHONE [address] [phone] Kelsy Méndez LCSW 07/13/2025 12:00 PM CDT BH/MH Visits [address] [phone] Kelsy Méndez LCSW 07/13/2025 Plan of Care Documentation [address] [phone] 07/13/2025 Plan of Care Documentation [address] [phone] 07/07/2025 1:00 PM CDT Office Visit [address] [address] Staff, [facility] Support 07/07/2025 Results Follow-Up [address] [phone] Aye Mccollum NP 07/06/2025 10:00 AM CDT Behavioral Health Visit [address] [phone] Kelsy Méndez LCSW 07/06/2025 8:30 AM CDT Office Visit [address] [phone] Aye Mccollum, BOND UNDERWRITER 07/06/2025 Interim Notes [facility] [address] [place] [address] Aubrey Gruber from Last 3 Months Immunizations Immunization Administration Dates Next Due DTAP (Infanrix) 04/26/2003, 2,09/26/1998,04/05,01/06/1998,1997 Flu, Preservative Free 08/28/2023 Flu, Recombinant, 18y+, Flublok 11/20/2022,07/25 HEP A, UNSPECIFIED 06/03/2008,05/27/2006 HEP B, PED/ADOL (TAJJOGT-H-AJXY/RECOMBIVAX-PEDS) 1997,1997 HIB-HEP B (Comvax) 04/05/1998 HPV 9 (Gardasil) 08/28/2023,01/31/2023, 3 Hep B,adult,adjuvanted (HEPLISAV) 05/11/2024, Hib, unspecified 09/26/1998,01/06/1998, 8 INFLUENZA, SEASONAL, INJECTABLE 08/14/2018 INFLUENZA, SEASONAL, INJECTA BLE, PRESERVATIVE FREE 07/06/2025,08/11/2024 INFLUENZA, UNSPECIFIED 09/11/2021,07/25/2009 IPV (IPOL) 04/26/2003, 2,04/05/1998,01/06,1997 MENINGOCOCCAL MCV4O (MENVEO) 05/22/2012 MENINGOCOCCAL MCV4P (MENACTRA) 02/14/2009 MMR (MMR II/Priorix) 05/16/2003,05/05/2002,09/26 Meningococcal Conjugate Quad rivalent (MenQuadfi), MenACWY-TT (MCV4) 01/31/2023,12/06/2022 Moderna COVID-19 Vaccine, re d cap blue label, 12+ Primary Series 08/12/2021,07/15/2021 PNEUMOCOCCAL CONJUGATE PCV 2 0 (Prevnar 20) 12/06/2022 PNEUMOCOCCAL CONJUGATE PCV 7 05/05/2002,02/17/20 TDAP 11/12/2021,05/22/2012,02/14/2009 Varicella (Varivax), Live Vaccine 06/03/2008, Family History Medical History Relation Name Comments Hyperlipidemia Father Hypertension Father Hypertension Mother Relation Name Status Comments Father Alive Mother Alive Social History Tobacco Use Types Packs/Day Years Used Date Smoking Tobacco: Never Smokeless Tobacco: Never Tobacco Cessation:Counseling Given: Not Answered Alcohol Use Standard Drinks/Week Comments Not Currently [...] not to disclose 2024 1:32 PM PDT Last Filed Vital Signs Vital Sign Reading Time Taken Comments Blood Pressure 116/80 07/27/2025 9:40 AM CDT Pulse 89 07/27/2025 9:40 AM CDT Temperature 36.3 C (97.4 F) 07/27/2025 9:40 AM CDT Respiratory Rate - - Oxygen Saturation 99% 07/27/2025 9:40 AM CDT Inhaled Oxygen Concentration - - Weight 93.2 kg (205 lb 6.4 oz) 07/27/2025 9:40 A M CDT Height 160 cm (5' 3) 01/12/2024 11:10 AM CDT Body Mass Index 36.38 01/12/2024 11:10 AM CDT Plan of Treatment Upcoming Encounters Date Type Department Care Team (Late st Contact Info) Description 08/15/2025 3:00 PM MARKETING PRODUCTION COORDINATOR Behavioral Health Visit [address] [phone] Kelsy Méndez, [address] [address] 08/22/2025 3:00 PM MARKETING PRODUCTION COORDINATOR Behavioral Health Visit [address] [phone] Kelsy Méndez, [address] [address] 08/29/2025 3:00 PM MARKETING PRODUCTION COORDINATOR Behavioral Health Visit [address] [phone] Kelsy Méndez [address] [address] 09/05/2025 3:00 PM MARKETING PRODUCTION COORDINATOR Behavioral Health Visit [address] [phone] Kelsy Méndez [address] [address] Health Maintenance Due Date Last Done Comments Imm-Zoster, Recombinant (1 of 2) 2016 [id number] (3 - Moderna ri sk series) 09/09/2021 08/12/2021, 07/15/2021 Depression Monitoring 10/13/2025 07/13/2025 , 07/06/2025, 03/02/2025, Additional history exists STI Counseling 07/06/2026 07/06/2025 Syphilis Screening 07/07/2026 07/07/2025, 0 07/07/2025, 03/02/2025, Additional history exists Anxiety Screening 07/13/2026 07/13/2025 Diabetes Screening 07/27/2026 07/27/2025, 0 07/07/2025, 07/07/2025, Additional history exists Hypertension Screening (#1) 07/27/2026 Tobacco Screening 07/27/2026 07/27/2025, 01/12/2024 Imm-Meningococcal (4 - Risk 2-dose series) 02/01/2028 01/31/2023, 12/06/2022, 05/22/2012, Additional history exists Lipid Screening 07/07/2030 07/07/2025, 02/11, 08/11/2024, Additional history exists Imm-DTaP/Tdap/Td (9 - Td or Tdap) 11/12/2031 11/12/2021, 05/22/2012, 02/14/2009, Additional history exists Imm-HIB Completed 09/26/1998, 03/14, 01/06/1998, Additional history exists Imm-MMR Completed 05/16/2003, 04/13, 09/26/1998 Imm-Hepatitis A Completed 06/03/2008, 05/27/2006 Imm-Pneumococcal Completed 12/06/2022, , 02/16/2001 Imm-HPV Completed 08/28/2023, 01/12, 12/06/2022 Imm-Hepatitis B Discontinued 05/11/2024, 01/12, 04/05/1998, Additional history exists Hepatitis B Screening Completed 03/02/2025, 023 Imm-Influenza Completed 07/06/2025, 07/15, 08/28/2023, Additional history exists Hepatitis C Screening Completed 07/07/2025, 024 Alcohol and Drug Screen Completed 07/13/20, 07/13/2025, 03/02/2025, Additional history exists Procedures Procedure Name Priority Date/Time Associated Diagnosis Comments OTHER ORDERS SCANNED DOCUMENT 07/29/2025 2:00 AM CDT BLOOD COUNT COMPLETE AUTOMATED Routine 07/27/2025 11:04 AM CDT Disseminated histoplasmosis COMPREHENSIVE METABOLIC PANEL Routine 07/27/2025 11:04 AM CDT Disseminated histoplasmosis MVISTA HISTOPLASMA QUANTITATIVE ANTIGEN, EIA Routine 07/27/2025 11:04 AM CDT Disseminated histoplasmosis ITRACONAZOLE LEVEL Routine 07/27/2025 11 :04 AM CDT Disseminated histoplasmosis OTHER ORDERS SCANNED DOCUMENT 07/20/2025 2:00 AM CDT RFLX - RPR TITER Routine 07/07/2025 8:33 AM CDT BLOOD COUNT COMPLETE AUTOMATED Routine 07/07/2025 8:33 AM CDT Currently asymptomatic HIV infection, with history of HIV-related illness On highly active antiretroviral therapy (HAART) Disseminated histoplasmosis COMPREHENSIVE METABOLIC PANEL Routine 07/07/2025 8:33 AM CDT Currently asymptomatic HIV infection, with history of HIV-related illness On highly active antiretroviral therapy (HAART) Disseminated histoplasmosis HEMOGLOBIN GLYCOSYLATED A1C Routine 07/07/2025 8:33 AM CDT Obesity (BMI 35.0-39.9 without comorbidity) Prediabetes HEPATITIS C AB W/RFLX HCV RNA, QT, RT PCR Routine 07/07/2025 8:33 AM CDT Routine screening for STI (sexually transmitted infection) HIV-1 RNA QUANT REAL TIME PCR, PLASMA Routine 07/07/2025 8:33 AM CDT Currently asymptomatic HIV infection, with history of HIV-related illness On highly active antiretroviral therapy (HAART) LIPIDS W RFLX TO DIRECT LDL Routine 07/07/2025 8:33 AM CDT Currently asymptomatic HIV infection, with history of HIV-related illness On highly active antiretroviral therapy (HAART) LYMPHOCYTE SUBSET PANEL 5 Routine 07/07/2025 8:33 AM CDT Currently asymptomatic HIV infection, with history of HIV-related illness On highly active antiretroviral therapy (HAART) QUANTIFERON-TB GOLD PLUS Routine 07/07/2025 8:33 AM CDT Currently asymptomatic HIV infection, with history of HIV-related illness RPR (MONITOR) W/REFL TITER Routine 07/07/2025 8:33 AM CDT Syphilis MVISTA HISTOPLASMA QUANTITATIVE ANTIGEN, EIA Routine 07/07/2025 8:33 AM CDT Disseminated histoplasmosis CHLAMYDIA/GONORRHOEAE RNA, TMA, THROAT Routine 07/06/2025 1:17 PM CDT Routine screening for STI (sexually transmitted infection) CHLAMYDIA/GONORRHEA, RNA TMA, RECTAL Routine 07/06/2025 1:17 PM CDT Routine screening for STI (sexually transmitted infection) C TRACHOMATIS/N GONORRHOEAE RNA,TMA Routine 07/06/2025 1:17 PM CDT Routine screening for STI (sexually transmitted infection) CULTURE FUNGAL, BLOOD Routine 07/06/2025 9:14 AM CDT VITAMIN B12 & FOLATE Routine 07/06/2025 9:14 AM CDT Severe episode of recurrent major depressive disorder, without psychotic features CORTISOL, A.M. Routine 07/06/2025 9:14 AM CDT Severe episode of recurrent major depressive disorder, without psychotic features TSH W/RFLX FREE T4 Routine 07/06/2025 9: 14 AM CDT Severe episode of recurrent major depressive disorder, without psychotic features 25 HYDROXY INCLUDES FRACTIONS IF PERFORMED Routine 07/06/2025 9:14 AM CDT Severe episode of recurrent major depressive disorder, without psychotic features ASSAY OF TESTOSTERONE TOTAL Routine 07/06/2025 9:14 AM CDT Obesity (BMI 35.0-39.9 without comorbidity) from Last 3 Months Results * OTHER ORDERS SCANNED DOCUMENT (07/29/2025 2:00 AM CDT) Only the most recent of2 resultswithin the time period is included. 07/29/2025 2:00 AM CDT us Aye Chun BOND UNDERWRITER SCAN OTHER ORDERS Final Result * MVISTA HISTOPLASMA QUANTITATIVE ANTIGEN, EIA Routine (07/27/2025 11:04 AM CDT) Only the most recent of2 resultswithin the time period is included. SPECIMEN TYPE URINE [facility] RESULT NONE DETECTED ng/mL [facility] INTERPRETATION NEGATIVE [facility] Comment: Test Parameters: Reference Interval: None Detected Reportable Range: Positive Results reported in ng/mL from 0.20 ng/mL to 20.00 ng/mL Positive results above 20.00 ng/mL are reported as Above the Limit of Quantification Cross-reactions occur with Blastomyces spp., Coccidioides spp., and Paracoccidioides brasiliensis. This test was developed and its performance characteristics determined by [facility]. It has not been cleared or approved by the FDA; however, FDA clearance or approval is not currently required for clinical use. The results are not intended to be used as the sole means for clinical diagnosis or patient management decisions. INTERPRETATION NEGATIVE [facility] Comment: Test Parameters: Reference Interval: None Detected Reportable Range: Positive Results reported in ng/mL from 0.20 ng/mL to 20.00 ng/mL Positive results above 20.00 ng/mL are reported as Above the Limit of Quantification Cross-reactions occur with Blastomyces spp., Coccidioides spp., and Paracoccidioides brasiliensis. This test was developed and its performance characteristics determined by [facility]. It has not been cleared or approved by the FDA; however, FDA clearance or approval is not currently required for clinical use. The results are not intended to be used as the sole means for clinical diagnosis or patient management decisions. Urine Urine specimen / Unknown 07/27/2025 11:04 AM CDT 07/28/2025 9:35 AM CDT us Aye Chun BOND UNDERWRITER LAB - BLOOD DRAW Edited Result - Final [facility] [place] [address], [facility] [address] [place] [address] * ITRACONAZOLE LEVEL Routine (07/27/2025 11:04 AM CDT) [facility] ITRACONAZOLE, LC/MS/MS 0.87 mcg/mL [facility] Comment: (Note) This test was developed and its analytical performance characteristics have been determined by [facility]. It has not been cleared or approved by the FDA. This assay has been validated pursuant to the CLIA regulations and is used for clinical purposes. [place] ITRACONAZOLE, LC/MS/MS 1.22 mcg/mL [facility] Comment: (Note) - Itraconazole (trough) localized infection: > 0.5 mcg/mL - Itraconazole (trough) systemic infection: > 1.0 mcg/mL The therapeutic window for the total of itraconazole and its active metabolite, hydroxyl-itraconazole, is 1.00-4.00 mcg/mL. This test was developed and its analytical performance characteristics have been determined by [facility]. It has not been cleared or approved by the FDA. This assay has been validated pursuant to the CLIA regulations and is used for clinical purposes. [facility] [address] [facility] [address] [facility] [id number] Eden Cooper MD, PhD Blood Blood / Unknown 07/27/2025 1 1:04 AM CDT 07/28/2025 4:34 AM CDT us Aye Chun BOND UNDERWRITER LAB - BLOOD DRAW Edited Result - Final [facility] [address] [address] [address] [place] [address], [facility] [address] [address] * (ABNORMAL) BLOOD COUNT COMPLETE AUTOMATED Routine (07/27/2025 11:04 AM CDT) Only the most recent of2 resultswithin the time period is included. Pathologist [facility] WHITE BLOOD CELL COUNT 4.9 3.8 - 10.8 Thousand/ uL [facility] RED BLOOD CELL COUNT 5.28 4.20 - 5.80 Million/u L [facility] HEMOGLOBIN 15.2 13.2 - 17.1 g/dL [facility] HEMATOCRIT 46.9 38.5 - 50.0 % [facility] MCV 88.8 80.0 - 100.0 fL [facility] MCH 28.8 27.0 - 33.0 pg [facility] MCHC 32.4 32.0 - 36.0 g/dL [facility] Comment: For adults, a slight decrease in the calculated MCHC value (in the range of 30 to 32 g/dL) is most likely not clinically significant; however, it should be interpreted with caution in correlation with other red cell parameters and the patient's clinical condition. RDW 15.2(H) 11.0 - 15.0 % [facility] PLATELET COUNT 317 140 - 400 Thousand/ uL [facility] MPV 9.9 7.5 - 12.5 fL [facility] Blood Blood / Unknown 07/27/2025 1 1:04 AM CDT 07/28/2025 4:56 AM CDT us Aye Mccollum NP LAB - BLOOD DRAW Edited Result - Final [facility] [place] [address] [address] [address], [facility] [place] [address] [address] [place] [address] * COMPREHENSIVE METABOLIC PANEL Routine (07/27/2025 11:04 AM CDT) Only the most recent of2 resultswithin the time period is included. GLUCOSE 90 65 - 99 mg/dL [facility] Comment: Fasting reference interval UREA NITROGEN (BUN) 8 7 - 25 mg/dL [facility] CREATININE (blood) 0.91 0.60 - 1.24 mg/dL [facility] EGFR 118 > OR = 60 mL/min/1. 73m2 [facility] BUN/CREATININE RATIO SEE NOTE: 6 - 22 (calc) [facility] Comment: Not Reported: BUN and Creatinine are within reference range. SODIUM 138 135 - 146 mmol/L [facility] POTASSIUM 4.1 3.5 - 5.3 mmol/L [facility] CHLORIDE 103 98 - 110 mmol/L [facility] CARBON DIOXIDE 29 20 - 32 mmol/L [facility] CALCIUM 9.9 8.6 - 10.3 mg/dL [facility] PROTEIN, TOTAL 7.2 6.1 - 8.1 g/dL [facility] ALBUMIN 4.4 3.6 - 5.1 g/dL [facility] GLOBULIN 2.8 1.9 - 3.7 g/dL (calc) [facility] ALBUMIN/GLOBULI N RATIO 1.6 1.0 - 2.5 (calc) [facility] BILIRUBIN, TOTAL 0.4 0.2 - 1.2 mg/dL [facility] ALKALINE PHOSPHATASE 63 36 - 130 U/L [facility] AST 20 10 - 40 U/L [facility] ALT 29 9 - 46 U/L [facility] Blood Blood / Unknown 07/27/2025 1 1:04 AM CDT 07/28/2025 4:59 AM CDT us Aye Chun BOND UNDERWRITER LAB - BLOOD DRAW Edited Result - Final [facility] [place] [address] [address] [place]ULC[place] [address], [facility] [place] [address] [address] MCKENZIE [place] [address] * QUANTIFERON-TB GOLD PLUS Routine (07/07/2025 8:33 AM CDT) [facility] QUANTIFERON NEGATIVE NEGATIVE [facility] [place] Comment: Negative test result. M. tuberculosis complex infection unlikely. NIL 0.50 IU/mL [facility] MITOGEN-NIL 8.22 IU/mL [facility] TB1-NIL 0.00 IU/mL [facility] TB2-NIL 0.01 IU/mL [facility] Comment: The Nil tube value reflects the background interferon gamma immune response of the patient's blood sample. This value has been subtracted from the patient's displayed TB and Mitogen results. Lower than expected results with the Mitogen tube prevent false-negative Quantiferon readings by detecting a patient with a potential immune suppressive condition and/or suboptimal pre-analytical specimen handling. The TB1 Antigen tube is coated with the M. tuberculosis-specific antigens designed to elicit responses from TB antigen primed CD4+ helper T-lymphocytes. The TB2 Antigen tube is coated with the M. tuberculosis-specific antigens designed to elicit responses from TB antigen primed CD4+ helper and CD8+ cytotoxic T-lymphocytes. For additional information, please refer to https://education.WhoKnows/faq/TZB744 (This link is being provided for informational/ educational purposes only.) Blood Blood / Unknown 07/07/2025 8 :33 AM CDT 07/08/2025 1:03 PM CDT us Aye Chun BOND UNDERWRITER LAB - BLOOD DRAW Edited Result - Final [facility] [place] [address] [place] [address], [facility] [place] [address] [place] [address] * HEPATITIS C AB W/RFLX HCV RNA, QT, RT PCR Routine (07/07/2025 8:33 AM CDT) [facility] HEPATITIS C ANTIBODY NON-REACT LINDA NON-REACT LINDA [facility] Comment: HCV antibody was non-reactive. There is no laboratory evidence of HCV infection. In most cases, no further action is required. However, if recent HCV exposure is suspected, a test for HCV RNA (test code 70629) is suggested. For additional information please refer to http://education.WhoKnows/faq/UMS67k5 (This link is being provided for informational/ educational purposes only.) Blood Blood / Unknown 07/07/2025 8 :33 AM CDT 07/08/2025 6:04 AM CDT Aye Chun BOND UNDERWRITER LAB - BLOOD DRAW Edited Result - Final Performing Organization Address [facility]/ZIP Co de Phone [place] [address], [facility] [address] [address] * (ABNORMAL) RFLX - RPR TITER Routine (07/07/2025 8:33 AM CDT) RPR TITER 1:128(H) [facility] CHERI 07/07/2025 8:33 AM CDT 07/07/2025 8:37 AM CDT [facility] - BLOOD DRAW Edited Result - Final Performing Organization Address [facility] de Phone [place] [address], [facility] [address] [address] * (ABNORMAL) LYMPHOCYTE SUBSET PANEL 5 Routine (07/07/2025 8:33 AM CDT) % CD4 (HELPER CELLS) 19(L) 30 - 61 % [facility] [place] ABSOLUTE CD4+ CELLS 460(L) 490 - 1,740 cells/uL [facility] ABSOLUTE LYMPHOCYTES 2,433 850 - 3,900 cells/uL [facility] Blood Blood / Unknown 07/07/2025 8 :33 AM CDT 07/09/2025 12:21 PM CDT Aye Mccollum BOND UNDERWRITER LAB - BLOOD DRAW Edited Result - Final [facility] [address] [place] [address] [facility] [address] [facility] [place] [address] * HIV-1 RNA QUANT REAL TIME PCR, PLASMA Routine (07/07/2025 8:33 AM CDT) COPIES/ML NOT DETECTED NOT DETECTED copies/mL [facility] LOG COPIES/ML NOT DETECTED NOT DETECTED Log copies/mL [facility] Comment: This test was performed using Real-Time Polymerase Chain Reaction. Reportable Range: 20 copies/mL to 10,000,000 copies/mL (1.30 log copies/mL to 7.00 log copies/mL). Blood Blood / Unknown 07/07/2025 8 :33 AM CDT 07/08/2025 3:20 AM CDT Aye [facility] LAB - BLOOD DRAW Edited Result - Final Performing Organization Address City/[facility]/ZIP Co de Phone Number [facility] [place] [address] [place], [place] [address] [phone] [facility] [place] [address] [place] [address] * (ABNORMAL) LIPIDS W RFLX TO DIRECT LDL Routine (07/07/2025 8:33 AM CDT) CHOLESTEROL, TOTAL 212(H) <200 mg/dL [facility] [place] HDL CHOLESTEROL 31(L) > OR = 40 mg/dL [facility] [place] TRIGLYCERIDES 308(H) <150 mg/dL [facility] [place] Comment: If a non-fasting specimen was collected, consider repeat triglyceride testing on a fasting specimen if clinically indicated. Emily et al. J. of Clin. Lipidol. 2015;9:129-169. LDL-CHOLESTEROL 137(H) mg/dL (calc) [facility] [place] Comment: Reference range: <100 Desirable range <100 mg/dL for primary prevention; <70 mg/dL for patients with CHD or diabetic patients with > or = 2 CHD risk factors. LDL-C is now calculated using the Cristino calculation, which is a validated novel method providing better accuracy than the Friedewald equation in the estimation of LDL-C. Manpreet REGAN et al. GENEVIEVE. 2013;310(19): 2874-8545 (http://Mirifice.DealPing/faq/OLJ057) CHOL/HDLC RATIO 6.8(H) <5.0 (calc) [facility] NON-HDL CHOLESTEROL 181(H) <130 mg/dL (calc) [facility] [place] Comment: For patients with diabetes plus 1 major ASCVD risk factor, treating to a non-HDL-C goal of <100 mg/dL (LDL-C of <70 mg/dL) is considered a therapeutic option. Blood Blood / Unknown 07/07/2025 8 :33 AM CDT 07/08/2025 4:53 AM CDT us Aye Mccollum NP LAB - BLOOD DRAW Edited Result - Final Performing Organization Address [facility] Co de Phone Number [facility] [place] [address] [place] [address], [employer] [address] * (ABNORMAL) RPR (MONITOR) W/REFL TITER Routine (07/07/2025 8:33 AM CDT) Pathologist [facility] RPR (MONITOR) W/REFL TITER REACTIVE( A) NON-REACT [facility] [place] Comment: The RPR is a vxn-eqenqlipte-kxqcdrpa test; therefore, a treponemal-specific confirmatory test should be performed unless prior syphilis infection has been documented for this patient. Blood Blood / Unknown 07/07/2025 8 :33 AM CDT 07/08/2025 6:48 AM CDT us Aye Mccollum NP LAB - BLOOD DRAW Edited Result - Final Performing Organization Address [facility]/ZIP Co de Phone Number [facility] [place] [address] [place] [address], [facility] [address] [place] [address] * HEMOGLOBIN GLYCOSYLATED A1C Routine (07/07/2025 8:33 AM CDT) Pathologist [facility] HEMOGLOBIN A1C 5.5 <5.7 % [facility] [employer] [place] Comment: For the purpose of screening for the presence of diabetes: <5.7% Consistent with the absence of diabetes 5.7-6.4% Consistent with increased risk for diabetes (prediabetes) > or =6.5% Consistent with diabetes This assay result is consistent with a decreased risk of diabetes. Currently, no consensus exists regarding use of hemoglobin A1c for diagnosis of diabetes in children. According to [place] Diabetes Association (ADA) guidelines, hemoglobin A1c <7.0% represents optimal control in non- diabetic patients. Different metrics may apply to specific patient populations. Standards of Medical Care in Diabetes(ADA). Blood Blood / Unknown 07/07/2025 8 :33 AM CDT 07/08/2025 4:17 AM CDT us Aye Mccollum NP LAB - BLOOD DRAW Edited Result - Final [facility] [address] [address], [facility] [address] [address] * (ABNORMAL) CHLAMYDIA/GONORRHOEAE RNA, TMA, THROAT Throat Swab Routine (07/06/2025 1:17 PM CDT) [facility] CHLAMYDIA TRACHOMATIS RNA, TMA, THROAT NOT DETECTED NOT DETECTED [facility] [place] NEISSERIA GONORRHOEAE RNA, TMA, THROAT DETECTED(A) NOT DETECTED [facility] [place] Comment: A positive NG Nucleic Acid Amplification Test (NAAT) result should be considered presumptive evidence of infection. The result should be evaluated along with physical examination and other diagnostic findings. COMMENT [facility] [place] Swab Structure of anterior region of neck / Unknown 07/06/2025 1:17 PM CDT 07/07/2025 8:12 AM CDT Narrative [facility] [place] - 07/07/2025 11:45 AM CDT The analytical performance characteristics of this assay have been determined by [employer]. The modifications have not been cleared or approved by the FDA. This assay has been validated pursuant to the CLIA regulations and is used for clinical purposes. Aye Chun BOND UNDERWRITER LAB - MICROBIOLOGY AMBULATORY E dited Result - Final Performing Organization Address [facility]/ZIP Co de Phone Number [facility] [address] [place] [address], [employer] [place] [address] * CHLAMYDIA/NEISSERIA GONORRHOEAE RNA, TMA, UROGENITAL Urine Urine Routine (07/06/2025 1:17 PM CDT) CHLAMYDIA TRACHOMATIS RNA, TMA NOT DETECTED NOT DETECTED [facility] [place] NEISSERIA GONORRHOEAE RNA, TMA NOT DETECTED NOT DETECTED [facility] [place] COMMENT [facility] [place] Urine Urine specimen / Unknown 07/06/2025 1:17 PM CDT 07/07/2025 6:51 AM CDT Narrative [facility] [place] - 07/07/2025 11:45 AM CDT The analytical performance characteristics of this assay, when used to test SurePath(TM) specimens have been determined by [employer]. The modifications have not been cleared or approved by the FDA. This assay has been validated pursuant to the CLIA regulations and is used for clinical purposes. For additional information, please refer to https://education.Superior Services.[employer]faq/ICK898 (This link is being provided for information/ educational purposes only.) [facility] Chun BOND UNDERWRITER LAB BODY FLUIDS AND STOOLS AMBU LATORY Edited Result - Final Performing Organization Address [facility]/ZIP Co de Phone Number [facility] [address] [place] [address], [facility] [email or web address] [email or web address] [address] * (ABNORMAL) CHLAMYDIA/GONORRHEA, RNA TMA, RECTAL Rectal Swab Routine (07/06/2025 1:17 PM CDT) Pathologist [facility] CHLAMYDIA TRACHOMATIS RNA, TMA, RECTAL NOT DETECTED NOT DETECTED [facility] [place] NEISSERIA GONORRHOEAE RNA, TMA, RECTAL DETECTED(A) NOT DETECTED [facility] [place] Comment: A positive NG Nucleic Acid Amplification Test (NAAT) result should be considered presumptive evidence of infection. The result should be evaluated along with physical examination and other diagnostic findings. COMMENT [facility] [place] Swab Specimen from rectum / Unknown 07/06/2025 1:17 PM CDT 07/07/2025 8:15 AM CDT Narrative [facility] [place] - 07/07/2025 11:45 AM CDT The analytical performance characteristics of this assay have been determined by [employer]. The modifications have not been cleared or approved by the FDA. This assay has been validated pursuant to the CLIA regulations and is used for clinical purposes. us Aye Mccollum NP LAB - MICROBIOLOGY AMBULATORY E dited Result - Final Performing Organization Address City/[facility]/ZIP Co de Phone Number [facility] [place] [address] [place], [place] [address] [phone] [facility] [place] [address] [place] [address] * CULTURE FUNGAL, BLOOD Routine (07/06/2025 9:14 AM CDT) Pathologist [facility] SOURCE: BLOOD LEFT ARM [facility] [place] [place] STATUS: FINAL [facility] [place] [place] FUNGUS CULTURE, BLOOD NO GROWTH AT 30 DAYS [facility] [place] [place] 07/06/2025 9:14 AM CDT 07/07/2025 5:43 AM CDT us Aye Mccollum NP LAB - BLOOD DRAW Edited Result - Final Performing Organization Address City/[facility]/ZIP Co de Phone Number [facility] [place] [address] [place] [address] [facility] [place] [place] [address] [place] [address] * TSH W/RFLX FREE T4 Routine (07/06/2025 9:14 AM CDT) [facility] TSH W/REFLEX TO FT4 0.63 0.40 - 4.50 mIU/L [facility] [place] Blood Blood / Unknown 07/06/2025 9 :14 AM CDT 07/07/2025 5:08 AM CDT Aye Chun BOND UNDERWRITER LAB - BLOOD DRAW Edited Result - Final [facility] [address] [place] [address], [employer] [address] [place] [address] * CORTISOL, A.M. Routine (07/06/2025 9:14 AM CDT) [facility] CORTISOL, A. M. 5.3 mcg/dL [facility] [employer] [place] Comment: The Cortisol result may be decreased on average 10-20% relative to results previously obtained with this method due to a recent quality improvement made in May 2025 by the reagent stamp mounter. Reference Range 8 a.m. (7-9 a.m.) Specimen: 4.0-22.0 Blood Blood / Unknown 07/06/2025 9 :14 AM CDT 07/07/2025 4:51 AM CDT [facility] Chun BOND UNDERWRITER LAB - BLOOD DRAW Edited Result - Final [facility] [address] [place] [address], [employer] [address] [place] [address] * VITAMIN B12 & FOLATE Routine (07/06/2025 9:14 AM CDT) [facility] VITAMIN B12 253 200 - 1,100 pg/mL [facility] [place] Comment: Please Note: Although the reference range for vitamin B12 is 200-1100 pg/mL, it has been reported that between 5 and 10% of patients with values between 200 and 400 pg/mL may experience neuropsychiatric and hematologic abnormalities due to occult B12 deficiency; less than 1% of patients with values above 400 pg/mL will have symptoms. FOLATE, SERUM 6.1 ng/mL [employer] Comment: Reference Range Low: <3.4 Borderline: 3.4-5.4 Normal: >5.4 Blood Blood / Unknown 07/06/2025 9 :14 AM CDT 07/07/2025 5:08 AM CDT [facility] LAB - BLOOD DRAW Edited Result - Final [facility] [address] [address], [facility] [address] [address] * ASSAY OF TESTOSTERONE TOTAL Routine (07/06/2025 9:14 AM CDT) Pathologist [facility] TESTOSTERONE, TOTAL 402 250 - 827 ng/dL [facility] [place] Blood Blood / Unknown 07/06/2025 9 :14 AM CDT 07/07/2025 5:08 AM CDT [facility] Chun LAB - BLOOD DRAW Edited Result - Final [facility] [address] [address], [employer] ST[address]ETTask Spotting Inc. [facility] [email or web address] [address] * (ABNORMAL) Vitamin D, 25-Hydroxy Routine (07/06/2025 9:14 AM CDT) Pathologist [facility] VITAMIN D, 25-OH, TOTAL 18(L) 30 - 100 ng/mL [employer] Comment: Vitamin D Status 25-OH Vitamin D: Deficiency: <20 ng/mL Insufficiency: 20 - 29 ng/mL Optimal: > or = 30 ng/mL For 25-OH Vitamin D testing on patients on D2-supplementation and patients for whom quantitation of D2 and D3 fractions is required, the QuestAssureD(TM) 25-OH VIT D, (D2,D3), LC/MS/MS is recommended: order code 21718 (patients >2yrs). COMMENT [facility] [place] Blood Blood / Unknown 07/06/2025 9 :14 AM CDT 07/07/2025 5:08 AM CDT Narrative [facility] [place] - 08/08/2025 11:29 AM CDT See Note 1 Note 1 For additional information, please refer to http://education.DealPing/faq/NUQ920 (This link is being provided for informational/ educational purposes only.) us Aye Mccollum NP LAB - BLOOD DRAW Edited Result - Final [facility] [place] [address] [place] [address], [employer] [employer] [employer] [address] [place] [address] from Last 3 Months Insurance [employer] MEDICAID Member Subscriber Plan / Payer (Ef fective 2024-Present) Name:Barney Kahn Relation to Subscriber:Self Name:Barney Kahn Payer ID:[id number] Group ID:Not on file Type:Medicaid Address: [facility] [id number] [place] [address] Care Teams Licensed Weigher Relationship Specialty Start Date End Date Aye Mccollum NP [address] [place] [address] PCP - General Adult Health 01/06/24
--- OUTSIDE RECORDS SUMMARY | 2025-08-08 20:10 | XMS_ITS | Encounter Summary ---
Author Organization [facility] Health Address [address] [place] [address] Care Team Providers Care Background Investigator Name Role Phone Jeff Harris Delonte SENIOR ACCOUNT EXECUTIVE-COURT OPERATIONS CLERK Primary Care Provider Encounter Details Date Type Department Care Team (Late st Contact Info) Description 01/03/2023 Ophth Exam [facility] [address] [place] [phone] Carlos Burden MD [facility] [address] Social History Tobacco Use Types Packs/Day Years [...] more drinks on one occasion? Never 12/28/2022 PHQ-2 Answer Date Recorded PHQ2 TOTAL SCORE 0 12/06/2022 Sex and Gender Information Value Date Recorded Sex Assigned at Not on file Legal Sex Male 6:53 PM TRACK SUPERINTENDENT Gender Identity Not on file Sexual Orientation Not on file documented as of this encounter Functional Status * Is person deaf or have serious hearing difficulty? Answer Date of Assessment Author No 12/28/2022 4:37 PM CDT Bessy Soto RN * Is person blind or have serious difficulty seeing? Answer Date of Assessment Author No 12/28/2022 4:37 PM CDT Bessy Soto RN * Does person have serious difficulty walking/climbing stairs? Answer Date of Assessment Author No 12/28/2022 4:37 PM CDT Bessy Soto RN * Does person have difficulty dressing/bathing? Answer Date of Assessment Author No 12/28/2022 4:37 PM CDT Bessy Soto RN * Does person have difficulty doing errands alone? Answer Date of Assessment Author No 12/28/2022 4:37 PM CDT Bessy Soto RN documented as of this encounter Mental Status * Does person have difficulty concentrating/remembering/making decisions? Answer Entry Date Author No 12/28/2022 4:37 PM Bessy Zarate RN documented in this encounter Plan of Treatment [...] on filedocumented in this encounter Care Teams Background Investigator Relationship Specialty Start Date End Date Jeff Harris, GRANT-COURT OPERATIONS CLERK PCP - General 03/30/21 documented as of this encounter
--- OUTSIDE RECORDS SUMMARY | 2025-08-08 20:10 | XMS_ITS | Clinical Summary ---
Author Organization [facility] [employer] Address [address] [place] [address] Care Team Providers Care Package Sorter Name Role Phone Jeff Harris FASHION SHOW DIRECTOR-MOTOR EQUIPMENT CAPTAIN Primary Care Provider Source Comments [facility],non-owned Affiliates and Associated Physician Practices is amultiple site organization consisting of ambulatory clinics and hospital sitesin [place] and [place]. This disclosure is being madepursuant to the Care Everywhere program and may not contain all information available regarding this patient. Last updated 18.[facility] [employer] Allergies Active Allergy Reactions Criticality Noted Date [...] (Biktarvy) 50-200-25 MGIndications:Human immunodeficiency virus (HIV) disease ([facility]) Take 1 (one) tablet by mouth once [...] Diet Rx increased daily exercise as tolerated Qpkkzvd-op-vuq 01/11/2022 AIN grade I 01/11/2022 Major depressive disorder, s melida episode with anxious distress 11/13/2021 Overview (11/13/2021): reports depression-like sx since onset of rectal issies. Reports anorexia, insomnia, and lack of motivation towards Pleasurable things. Assessment & Plan (11/21/2022 9:17 AM EMPLOYEE RELATIONS ASSISTANT): Discussed need for sleep hygiene, regular exercise, and healthful diet Encouraged regualr talk therapy: Refer to [facility] Discussed resuming sertraline: Pt to consider Assessment & Plan (11/13/2021 10:15 AM EMPLOYEE RELATIONS ASSISTANT): Begin Fluoxietine: FU in 3wk, 6wk, and three months to efficacy Begin talk therapy Gastroesophageal reflux disease without esophagi tis 05/03/2021 Assessment & Plan (11/21/2022 9:15 AM EMPLOYEE RELATIONS ASSISTANT): DC omeprazole and begin pantoprazole Discussed importance of GERD-friendly diet and eating habits Assessment & Plan (05/03/2021 1:05 PM CDT): Omeprazole 20mg Daily Dietary change Grade IV hemorrhoids 04/12/2021 Assessment & Plan (04/12/2021 12:33 PM CDT): Continue Sitz bath, witch mario, and cool compress GI Consult at colonoscopy appt/ surg removal Colitis 04/12/2021 Assessment & Plan (11/13/2021 10:13 AM EMPLOYEE RELATIONS ASSISTANT): continue current Tx, food journal,and isolation of triggers Keep FU appts with GI and Colorectal Vaccine counseling 04/12/2021 Overview (04/12/2021): Pt resistent to COVID vax rekated to fear Policy Cancellation Clerk to risk VS bebefit of vaccine Vs Infection Assessment & Plan (11/21/2022 9:17 AM EMPLOYEE RELATIONS ASSISTANT): Need pediatric record for HPV sent, Pt to complete Discussed risk V benefits of COVID vaccines Abscess of anal and rectal regions 03/16/2021 Assessment & Plan (11/13/2021 10:12 AM EMPLOYEE RELATIONS ASSISTANT): I&D Augmentin X7 days Discussed home wound [...] Recorded Patient Health Questionnaire-2 Score 2 12/11/2023 [facility] - [...] place to sleep or slept in a skilled nursing (including now)? Patient refused 01/16/2023 Sex and Gender Information Value Date Recorded Sex Assigned at Not on file Legal Sex Male 6:53 PM EMPLOYEE RELATIONS ASSISTANT Gender Identity Not on file Sexual Orientation Not on file Last Filed Vital Signs Vital Sign Reading Time Taken Comments Blood Pressure 114/75 12/11/2023 8:25 AM EMPLOYEE RELATIONS ASSISTANT Pulse 65 12/11/2023 8:25 AM EMPLOYEE RELATIONS ASSISTANT Temperature 36.4 C (97.6 F) 12/11/2023 8:25 AM EMPLOYEE RELATIONS ASSISTANT Respiratory Rate 18 08/28/2023 9:39 AM EMPLOYEE RELATIONS ASSISTANT Oxygen Saturation 99% 08/28/2023 9:39 AM EMPLOYEE RELATIONS ASSISTANT Inhaled Oxygen Concentration - - Weight 88.9 kg (196 lb) 12/11/2023 8:25 AM EMPLOYEE RELATIONS ASSISTANT Height 160 cm (5' 3) 08/28/2023 9:39 AM EMPLOYEE RELATIONS ASSISTANT Body Mass Index 34.72 08/28/2023 9:39 AM EMPLOYEE RELATIONS ASSISTANT Plan of Treatment Health Maintenance Due Date [...] RNA QN PCR Routine 12/06/2022 12:00 PM EMPLOYEE RELATIONS ASSISTANT Routine screening for STI (sexually transmitted infection) Immunity status testing from Last 3 Months or Most Recently Relevant to Health Maintenance Results * Hep C Antibody with reflex ([facility]) (12/06/2022 12:00 PM EMPLOYEE RELATIONS ASSISTANT) Hepatitis C Antibody NON-REACTI VE NON-REACT [facility] Signal to Cut-Off 0.29 <1.00 [facility] Comment: HCV antibody was non-reactive. There is no laboratory evidence of HCV infection. In most cases, no further action is required. However, if recent HCV exposure is suspected, a test for HCV RNA (test code 94656) is suggested. For additional information please refer to http://education.GINKGOTREE/faq/FRY53l7 (This link is being provided for informational/ educational purposes only.) Test Performed at: [facility] [address] [address] SUSANA NAQVI MD Blood BLOOD SPECIMEN / Unknown 12/06/2022 12:00 PM EMPLOYEE RELATIONS ASSISTANT 12/07/2022 6:28 AM EMPLOYEE RELATIONS ASSISTANT us Aye VO LAB - CHEMISTRY ORDERAB LES Final Result [facility] [address] [place] [address] from Last 3 Months or Most Recently Relevant to Health Maintenance Advance Directives * Full Code (Latest Code Status on File) Date Activated Date Inactivated Comments 12/27/2022 10:18 PM 01/17/2023 6:06 PM * Full Code Date Activated Date Inactivated Comments 03/16/2021 2:48 AM 03/16/2021 4:17 PM Care Teams Package Sorter Relationship Specialty Start Date End Date Jeff Harris APRN-CNP PCP - General 03/30/21
--- OUTSIDE RECORDS SUMMARY | 2025-08-08 20:10 | XMS_ITS | Encounter Summary ---
Author Organization [facility] Address [address] [place] [address] Care Team Providers Care Amusement Or Recreation Card Checker Name Role Phone Jeff Harris Delonte STILL TENDER-DOLL MAKER Primary Care Provider Encounter Details Date Type Department Care Team (Late st Contact Info) Description 12/05/2021 Telephone [facility] [address] [place] [address] Neris Landis MD [address] [phone] Social History Tobacco Use Types Packs/Day Years Used Date Smoking Tobacco: Never Smokeless Tobacco: Never Alcohol Use Standard Drinks/Week Comments No 0 (1 standard drink = 0.6 oz pur e alcohol) PHQ-2 Answer Date Recorded PHQ2 TOTAL SCORE 3 11/12/2021 Sex and Gender Information Value Date Recorded Sex Assigned at Not on file Legal Sex Male 6:53 PM SOCIAL SERVICES AIDE Gender Identity Not on file Sexual Orientation Not on file documented as of this encounter Plan of Treatment Not on file documented as of this encounter Visit Diagnoses Not on filedocumented in this encounter Additional Health Concerns Infection Onset Date Last Indicated Resolved Time COVID-19 Under Investigation 11/28/2022 11/28/2022 11/28/2022 10:05 PM SOCIAL SERVICES AIDE COVID-19 Confirmed 11/28/2022 11/28/2022 4:33 AM SOCIAL SERVICES AIDE documented as of this encounter Care Teams Amusement Or Recreation Card Checker Relationship Specialty Start Date End Date Jeff Harris, STILL TENDER-DOLL MAKER PCP - General 03/30/21 documented as of this encounter
--- OUTSIDE RECORDS SUMMARY | 2025-08-08 20:10 | XMS_ITS | Encounter Summary ---
Author Organization [facility] Address [address] [place] [address] Care Team Providers Care Senior Tax Analyst Name Role Phone Jeff Harris INSURANCE FOLLOW UP REPRESENTATIVE-CHIEF INTERNAL AUDITOR Primary Care Provider Encounter Details Date Type Department Care Team (Late st Contact Info) Description 07/09/2021 Telephone [facility] [address] [place] [address] Neris Landis MD [address] [phone] Social History Tobacco Use Types Packs/Day Years Used Date Smoking Tobacco: Never Smokeless Tobacco: Never Alcohol Use Standard Drinks/Week Comments No 0 (1 standard drink = 0.6 oz pur e alcohol) Sex and Gender Information Value Date Recorded Sex Assigned at Not on file Legal Sex Male 6:53 PM CLOTH FEEDER Gender Identity Not on file Sexual Orientation Not on file documented as of this encounter Plan of Treatment Not on file documented as of this encounter Visit Diagnoses Not on filedocumented in this encounter Additional Health Concerns Infection Onset Date Last Indicated Resolved Time COVID-19 Under Investigation 11/28/2022 11/28/2022 11/28/2022 10:05 PM CLOTH FEEDER COVID-19 Confirmed 11/28/2022 11/28/2022 4:33 AM CLOTH FEEDER documented as of this encounter Care Teams Senior Tax Analyst Relationship Specialty Start Date End Date Jeff Harris APRN-CHIEF INTERNAL AUDITOR PCP - General 03/30/21 documented as of this encounter
[2025-08-08 20:12] VITALS: BP 129/89; PULSE 111; RESP 16; TEMP 36.7; O2SAT 99
--- NOTE | 2025-08-08 20:33 | ED_ITS ---
HPI - Dental/Oral General Chief complaint: Dental/Oral Stated complaint: DENTAL Time Seen by Provider: 08/08/25 20:20 History of Present Illness HPI Narrative: Patient is a 29-year-old male who presents ER with pain above tooth 9. Diagnosed with a dental infection last week and was placed on clindamycin by Oleg. He is still having pain and was placed on clindamycin again 2 days ago. Today he noticed swelling and increased pain. No fevers or chills. No difficulty breathing or swelling. Related Data Allergies Allergy/AdvReac Type Severity Reaction Status Date / Time Penicillins Allergy Unknown Verified 08/05/25 22:55 Review of Systems Constitutional: Constitutional: Reports no additional constitutional complai nts ENT: Reports system reviewed and no additional complaints, except as documented PMFSH Past Medical History Medical History (Updated 08/08/25 @ 20:37 by Carlos Urias MD) Healthy adult male Exam Narrative: GENERAL: Well-appearing, well-nourished, and in no acute distress. HEAD: Normocephalic, atraumatic. ENT: Mucous membranes moist. Apical abscess of tooth 9. No significant swelling of the lips. EXTREMITIES: Normal range of motion. No edema. NEURO: Alert and oriented x3. PSYCH: Normal mood and affect. Course Vital Signs Vital signs: Vital Signs Temperature 98.1 F 08/08/25 20:12 Pulse Rate 111 H 08/08/25 20:12 Respiratory Rate 16 08/08/25 20:12 Blood Pressure 129/89 08/08/25 20:12 Pulse Oximetry 99 08/08/25 20:12 Oxygen Delivery Room Air 08/08/25 20:12 Temperature 98.1 F 08/08/25 20:12 Pulse Rate 111 H 08/08/25 20:12 Respiratory Rate 16 08/08/25 20:12 Blood Pressure 129/89 08/08/25 20:12 Pulse Oximetry 99 08/08/25 20:12 Oxygen Delivery Room Air 08/08/25 20:12 Procedures Abscess I/D oral: Date of Incision: 08/08/25 Time of Incision: 20:35 Local Anesthetic: none Technique: needle aspiration Irrigation: No Packing used?: none I&D Results: Pus Complications: pain MDM - Dental/Oral Medical Records Medical records narrative: Dental abscess, dental fracture cellulitis Discharge Plan Discharge Clinical Impression: Dental abscess Patient Disposition: Home Condition: Stable Instructions: Antibiotic Form, Dental Abscess (ED) Additional Instructions: Continue home antibiotics. Continue form warm salt water rinses. Massage the area that was drained here today. Follow up with your dentist. Patient Language: Upper Sorbian Prescriptions: New hydrocodone-acetaminophen 5-325 mg tablet 1 tablet PO Q6H PRN (Reason: pain) Qty: 8 0RF No Action clindamycin HCl [Cleocin HCl] 300 mg capsule 300 mg PO BID Qty: 14 0RF acetaminophen [Tylenol Extra Strength] 500 mg tablet 500 mg PO Q6H PRN (Reason: fever or pain) Qty: 180 0RF ibuprofen 600 mg tablet 600 mg PO Q6H PRN (Reason: fever or pain) Qty: 90 0RF Follow-up/Referrals: Dental Referral Line [Outside] - 1 Week PHYSICIAN,LABORER SHELLFISH PROCESSING [Primary Care Provider, Internal Medicine] Stand Alone Forms: Work/School Release IP
[2025-08-08] MEDS: HYDROcodone/acetaminophen (*CRX) 5-325 MG TABLET 1 TAB PO (20:46)
--- OUTSIDE RECORDS SUMMARY | 2025-08-08 21:02 | XMS_ITS | Clinical Summary ---
Author Organization [facility] Address [address] [place] [address] Care Team Providers Care Broom Handle Dipper Name Role Phone Aye Mccollum PHILLIP Primary Care Provider [phone] Source Comments PLEASE NOTE, if this patient [...] Lymphadenopathy 01/07/2023 07/27/2025 EBV infection 01/07/2023 07/27/2025 Rhfsbby-sh-ide 01/11/2022 07/27/2025 Grade IV hemorrhoids 04/12/2021 025 [...] Department Care Team Description 08/04/2025 Results Follow-Up [address] [address] Aye Mccollum NP 07/27/2025 10:00 AM CDT BH/MH Visits [address] [address] Kelsy Méndez LCSW 07/27/2025 9:30 AM CDT Office Visit [address] [address] Aye Mccollum NP 07/22/2025 BH/MH TELEPHONE [address] [address] Kelsy Méndez LCSW 07/13/2025 12:00 PM CDT BH/MH Visits [address] [address] Kelsy Méndez LCSW 07/13/2025 Plan of Care Documentation [address] [address] 07/13/2025 Plan of Care Documentation [address] [address] 07/07/2025 1:00 PM CDT Office Visit [address] [address] Staff, [facility] Clinic Support 07/07/2025 Results Follow-Up [address] [address] Aye Mccollum NP 07/06/2025 10:00 AM CDT Behavioral Health Visit [address] [address] Kelsy Méndez LCSW 07/06/2025 8:30 AM CDT Office Visit [address] [address] Aye Mccollum, ADVANCE SCOUT 07/06/2025 Interim Notes [facility] [address] [place] [address] Aubrey Gruber from Last 3 Months Immunizations Immunization Administration Dates Next Due DTAP (Infanrix) 04/26/2003, 2,09/26/1998,04/05,01/06/1998,1997 Flu, Preservative Free 08/28/2023 Flu, Recombinant, 18y+, Flublok 11/20/2022,07/25 HEP A, UNSPECIFIED 06/03/2008,05/27/2006 HEP B, PED/ADOL (YBEKFNM-T-RAXY/RECOMBIVAX-PEDS) 1997,1997 HIB-HEP B (Comvax) 04/05/1998 HPV 9 [...] st Contact Info) Description 08/15/2025 3:00 PM SENIOR NET C DEVELOPER Behavioral Health Visit [address] [address] Kelsy Méndez, [address] [address] 08/22/2025 3:00 PM SENIOR NET C DEVELOPER Behavioral Health Visit [address] [address] Kelsy Méndez, [address] [address] 08/29/2025 3:00 PM SENIOR NET C DEVELOPER Behavioral Health Visit [address] [address] Kelsy Méndez [address] [address] 09/05/2025 3:00 PM SENIOR NET C DEVELOPER Behavioral Health Visit [address] [address] Kelsy Méndez [address] [address] Health Maintenance Due Date Last Done Comments Imm-Zoster, Recombinant (1 of 2) 2016 Dto-LCFTL-19 (3 - Moderna ri sk series) 09/09/2021 [...] 07/29/2025 2:00 AM CDT us Aye Chun ADVANCE SCOUT SCAN OTHER ORDERS Final Result * MVISTA [...] developed and its performance characteristics determined by [employer]. It has not been cleared or approved [...] developed and its performance characteristics determined by [employer]. It has not been cleared or approved by the FDA; however, FDA clearance or approval is not currently required for clinical use. The results are not intended to be used as the sole means for clinical diagnosis or patient management decisions. Urine Urine specimen / Unknown 07/27/2025 11:04 AM CDT 07/28/2025 9:35 AM CDT us Aye Chun [facility] LAB - BLOOD DRAW Edited Result - Final [facility] [place] [address], [facility] [address] [place] [address] * ITRACONAZOLE LEVEL Routine (07/27/2025 11:04 AM CDT) [facility] ITRACONAZOLE, LC/MS/MS 0.87 mcg/mL [facility] Comment: (Note) This test was developed and its analytical performance characteristics have been determined by [employer]. It has not been cleared or approved [...] analytical performance characteristics have been determined by [employer]. It has not been cleared or approved by the FDA. This assay has been validated pursuant to the CLIA regulations and is used for clinical purposes. MDF [facility] [address] [facility] [address] [employer] [id number] Eden Cooper MD, PhD Blood Blood / Unknown 07/27/2025 1 1:04 AM CDT 07/28/2025 4:34 AM CDT us Aye Chun [facility]OUT LAB - BLOOD DRAW Edited Result - Final [facility] [address] [address] [address] [place] [address], [facility] [address] [address] * (ABNORMAL) BLOOD COUNT COMPLETE AUTOMATED Routine (07/27/2025 11:04 AM CDT) Only the most recent of2 resultswithin the time period is included. Pathologist [facility] WHITE BLOOD CELL COUNT 4.9 3.8 - [...] - BLOOD DRAW Edited Result - Final [facility] [place] [address] [address] [address], [facility] [place] [address] [address] [place] [address] * COMPREHENSIVE METABOLIC PANEL Routine (07/27/2025 11:04 [...] 07/28/2025 4:59 AM CDT us Aye Chun [facility] LAB - BLOOD DRAW Edited Result - Final [facility] [place] [address] [address] [place]DULCEManj[place] [address], [facility] [place] [address] [address] CHERIManjula [place] [address] * QUANTIFERON-TB GOLD PLUS Routine (07/07/2025 8:33 AM CDT) [facility] QUANTIFERON NEGATIVE NEGATIVE [facility] [place] Comment: Negative test result. M. tuberculosis complex [...] T-lymphocytes. For additional information, please refer to https://education.Mashup Arts/faq/VCZ741 (This link is being provided for informational/ educational purposes only.) Blood Blood / Unknown 07/07/2025 8 :33 AM CDT 07/08/2025 1:03 PM CDT us Aye Chun [facility] LAB - BLOOD DRAW Edited Result - Final [facility] [place] [address] [place] [address], [facility] [place] [address] [place] [address] * HEPATITIS C AB W/RFLX HCV RNA, QT, RT PCR Routine (07/07/2025 8:33 AM CDT) [facility] HEPATITIS C ANTIBODY NON-REACT LINDA NON-REACT LINDA [facility] [place] Comment: HCV antibody was non-reactive. There is no laboratory evidence of HCV infection. In most cases, no further action is required. However, if recent HCV exposure is suspected, a test for HCV RNA (test code 98105) is suggested. For additional information please refer to http://education.Mashup Arts/faq/TGO52a1 (This link is being provided for informational/ educational purposes only.) Blood Blood / Unknown 07/07/2025 8 :33 AM CDT 07/08/2025 6:04 AM CDT Aye Chun [facility] LAB - BLOOD DRAW Edited Result - Final Performing Organization Address [facility]/ZIP Co de Phone [place] [address], [facility] [address] [address] * (ABNORMAL) RFLX - RPR TITER Routine (07/07/2025 8:33 AM CDT) RPR TITER 1:128(H) [facility] [place] 07/07/2025 8:33 AM CDT 07/07/2025 8:37 AM CDT [facility] LAB - BLOOD DRAW Edited Result - Final Performing Organization Address [facility] de Phone [place] [address], [facility] [address] [address] * (ABNORMAL) LYMPHOCYTE SUBSET PANEL 5 Routine (07/07/2025 8:33 AM CDT) % CD4 (HELPER CELLS) 19(L) 30 - 61 % [facility] ELIUD PAULE ABSOLUTE CD4+ CELLS 460(L) 490 - 1,740 cells/uL [facility] [place] PAULE ABSOLUTE LYMPHOCYTES 2,433 850 - 3,900 cells/uL [facility] ELIUD GARZA Blood Blood / Unknown 07/07/2025 8 :33 AM CDT 07/09/2025 12:21 PM CDT Aye Mccollum [facility] LAB - BLOOD DRAW Edited Result - Final [facility] [address] [place] [address] [facility] ELIUD GARZA [address] [facility] [place] [address] * HIV-1 RNA QUANT REAL TIME PCR, [...] Edited Result - Final Performing Organization Address City/[facility]/ZIP Co de Phone Number [facility] [place] [address] [place], [place] [address] [phone] [facility] [place] [address] [place] [address] * (ABNORMAL) LIPIDS W RFLX TO DIRECT [...] LDL-C. Manpreet REGAN et al. GENEVIEVE. 2013;310(19): 5949-6101 (http://TherOx.PowerFile/faq/YBW591) CHOL/HDLC RATIO 6.8(H) <5.0 (calc) [facility] [...] Edited Result - Final Performing Organization Address [facility] Co de Phone Number [facility] [address] [address] [place] [address], [facility] [address] * (ABNORMAL) RPR (MONITOR) W/REFL TITER Routine (07/07/2025 8:33 AM CDT) Pathologist [facility] RPR (MONITOR) W/REFL TITER REACTIVE( A) NON-REACT LINDA [facility] [place] Comment: The RPR is a zmb-bpuxmbrsnn-ckqvvfpa test; therefore, a treponemal-specific confirmatory test should be performed unless prior syphilis infection has been documented for this patient. Blood Blood / Unknown 07/07/2025 8 :33 AM CDT 07/08/2025 6:48 AM CDT us Aye Mccollum NP LAB - BLOOD DRAW Edited Result - Final Performing Organization Address [facility]/ZIP Co de Phone Number [facility] [address] [address] [place] [address], [facility] [address] [place] [address] * HEMOGLOBIN GLYCOSYLATED A1C Routine (07/07/2025 8:33 AM CDT) Pathologist [facility] HEMOGLOBIN A1C 5.5 <5.7 % [facility] [place] Comment: For the purpose of screening for the presence of diabetes: <5.7% Consistent with the absence of diabetes 5.7-6.4% Consistent with increased risk for diabetes (prediabetes) > or =6.5% Consistent with diabetes This assay result is consistent with a decreased risk of diabetes. Currently, no consensus exists regarding use of hemoglobin A1c for diagnosis of diabetes in children. According to [place] Diabetes Association (ADA) guidelines, hemoglobin A1c <7.0% represents optimal control in non- diabetic patients. Different metrics may apply to specific patient populations. Standards of Medical Care in Diabetes(ADA). Blood Blood / Unknown 07/07/2025 8 :33 AM CDT 07/08/2025 4:17 AM CDT us Aye Mccollum NP LAB - BLOOD DRAW Edited Result - Final [facility] [address] [address], [facility] [address] [address] * (ABNORMAL) CHLAMYDIA/GONORRHOEAE RNA, TMA, THROAT Throat Swab Routine (07/06/2025 1:17 PM CDT) [facility] CHLAMYDIA TRACHOMATIS RNA, TMA, THROAT NOT DETECTED NOT DETECTED [facility] [place] NEISSERIA GONORRHOEAE RNA, TMA, THROAT DETECTED(A) NOT DETECTED [facility] [place] Comment: A positive NG Nucleic Acid Amplification Test (NAAT) result should be considered presumptive evidence of infection. The result should be evaluated along with physical examination and other diagnostic findings. COMMENT [facility] [place] Swab Structure of anterior region of neck / Unknown 07/06/2025 1:17 PM CDT 07/07/2025 8:12 AM CDT Narrative [facility] [place] - 07/07/2025 11:45 AM CDT The analytical performance characteristics of this assay have been determined by [employer]. The modifications have not been cleared or approved by the FDA. This assay has been validated pursuant to the CLIA regulations and is used for clinical purposes. Aye Chun [facility] LAB - MICROBIOLOGY AMBULATORY E dited Result - Final Performing Organization Address [facility]/ZIP Co de Phone Number [facility] [address] [place] [address], [facility] [place] [address] * CHLAMYDIA/NEISSERIA GONORRHOEAE RNA, TMA, UROGENITAL Urine Urine Routine (07/06/2025 1:17 PM CDT) CHLAMYDIA TRACHOMATIS RNA, TMA NOT DETECTED NOT DETECTED [facility] [place] NEISSERIA GONORRHOEAE RNA, TMA NOT DETECTED NOT DETECTED [facility] [place] COMMENT [facility] [place] Urine Urine specimen / Unknown 07/06/2025 1:17 PM CDT 07/07/2025 6:51 AM CDT Narrative [facility] [place] - 07/07/2025 11:45 AM CDT The analytical performance characteristics of this assay, when used to test SurePath(TM) specimens have been determined by [employer]. The modifications have not been cleared or approved by the FDA. This assay has been validated pursuant to the CLIA regulations and is used for clinical purposes. For additional information, please refer to https://education.Game Insight.GLOB[employer]/faq/RMO481 (This link is being provided for information/ educational purposes only.) [facility] BODY FLUIDS AND STOOLS AMBU LATORY Edited Result - Final Performing Organization Address [facility]/ZIP Co de Phone Number [facility] [address] [address] [employer] [address], [facility] [place]et[address] [address] * (ABNORMAL) CHLAMYDIA/GONORRHEA, RNA TMA, RECTAL Rectal Swab Routine (07/06/2025 1:17 PM CDT) Pathologist [facility] CHLAMYDIA TRACHOMATIS RNA, TMA, RECTAL NOT DETECTED [...] 07/07/2025 8:15 AM CDT Narrative [facility] [place] - 07/07/2025 11:45 AM CDT The analytical performance characteristics of this assay have been determined by [employer]. The modifications have not been cleared or approved by the FDA. This assay has been validated pursuant to the CLIA regulations and is used for clinical purposes. us Aye Mccollum NP LAB - MICROBIOLOGY AMBULATORY E dited Result - Final Performing Organization Address City/[facility]/ZIP Co de Phone Number [facility] [place] [address] [place], [place] [address] [phone] [facility] [place] [address] [place] [address] * CULTURE FUNGAL, BLOOD Routine (07/06/2025 9:14 AM CDT) Pathologist [facility] SOURCE: BLOOD LEFT ARM [facility] STATUS: FINAL [facility] FUNGUS CULTURE, BLOOD NO GROWTH AT 30 DAYS [facility] 07/06/2025 9:14 AM CDT 07/07/2025 5:43 AM CDT us Aye Mccollum NP LAB - BLOOD DRAW Edited Result - Final Performing Organization Address City/[facility]/ZIP Co de Phone Number [facility] [place] [address] [place] [address] [facility] [address] [place] [address] * TSH W/RFLX FREE T4 Routine (07/06/2025 9:14 AM CDT) [facility] TSH W/REFLEX TO FT4 0.63 0.40 - 4.50 mIU/L [facility] [place] Blood Blood / Unknown 07/06/2025 9 :14 AM CDT 07/07/2025 5:08 AM CDT Aye Chun [facility] LAB - BLOOD DRAW Edited Result - Final [facility] [address] [place] [address], [facility] [address] [place] [address] * CORTISOL, A.M. Routine (07/06/2025 9:14 AM CDT) [facility] CORTISOL, A. M. 5.3 mcg/dL [email or web address] [place] Comment: The Cortisol result may be decreased on average 10-20% relative to results previously obtained with this method due to a recent quality improvement made in May 2025 by the reagent group therapy counselor. Reference Range 8 a.m. (7-9 a.m.) Specimen: 4.0-22.0 Blood Blood / Unknown 07/06/2025 9 :14 AM CDT 07/07/2025 4:51 AM CDT [facility] Chun [facility]OUT LAB - BLOOD DRAW Edited Result - Final [facility] [address] [place] [address], [facility] [address] [place] [address] * VITAMIN B12 & FOLATE Routine (07/06/2025 9:14 AM CDT) [facility] VITAMIN B12 253 200 - 1,100 pg/mL [facility] [place] Comment: Please Note: Although the reference range for vitamin B12 is 200-1100 pg/mL, it has been reported that between 5 and 10% of patients with values between 200 and 400 pg/mL may experience neuropsychiatric and hematologic abnormalities due to occult B12 deficiency; less than 1% of patients with values above 400 pg/mL will have symptoms. FOLATE, SERUM 6.1 ng/mL [facility] Comment: Reference Range Low: <3.4 Borderline: 3.4-5.4 Normal: >5.4 Blood Blood / Unknown 07/06/2025 9 :14 AM CDT 07/07/2025 5:08 AM CDT [facility] LAB - BLOOD DRAW Edited Result - Final [facility] [address] [address], [facility] [address] [address] * ASSAY OF TESTOSTERONE TOTAL Routine (07/06/2025 9:14 AM CDT) Pathologist [facility] TESTOSTERONE, TOTAL 402 250 - 827 ng/dL [facility] [place] Blood Blood / Unknown 07/06/2025 9 :14 AM CDT 07/07/2025 5:08 AM CDT [facility] Chun LAB - BLOOD DRAW Edited Result - Final [facility] [address] [address], [email or web address] [facility] [address] * (ABNORMAL) Vitamin D, 25-Hydroxy Routine (07/06/2025 9:14 AM CDT) Pathologist [facility] VITAMIN D, 25-OH, TOTAL 18(L) 30 - 100 ng/mL [facility] Comment: Vitamin D Status 25-OH Vitamin D: Deficiency: <20 ng/mL Insufficiency: 20 - 29 ng/mL Optimal: > or = 30 ng/mL For 25-OH Vitamin D testing on patients on D2-supplementation and patients for whom quantitation of D2 and D3 fractions is required, the QuestAssureD(TM) 25-OH VIT D, (D2,D3), LC/MS/MS is recommended: order code 30347 (patients >2yrs). COMMENT [facility] [place] Blood Blood / Unknown 07/06/2025 9 :14 AM CDT 07/07/2025 5:08 AM CDT Narrative [facility] [place] - 08/08/2025 11:29 AM CDT See Note 1 Note 1 For additional information, please refer to http://education.PowerFile/faq/SHM139 (This link is being provided for informational/ educational purposes only.) us Aye Mccollum NP LAB - BLOOD DRAW Edited Result - Final [facility] [place] [address] [place] [address], [facility] [place]IANNAShenzhouying Software Technology [address] [place] [address] from Last 3 Months Insurance [employer] MEDICAID Member Subscriber Plan / Payer (Ef fective 2024-Present) Name:Barney Kahn Relation to Subscriber:Self Name:Barney Kahn Payer ID:[id number] Group ID:Not on file Type:Medicaid Address: [facility] [id number] [place] [address] Care Teams Broom Handle Dipper Relationship Specialty Start Date End Date Aye Mccollum NP [address] [place] [address] PCP - General Adult Health 01/06/24
--- OUTSIDE RECORDS SUMMARY | 2025-08-08 21:02 | XMS_ITS | Encounter Summary ---
Author Organization [facility] Address [address] [place] [address] Care Team Providers Care Restaurant Crew Person Name Role Phone Aye Mccollum TRIM MACHINE ADJUSTER Primary Care Provider [phone] Reason for Visit * Reason Onset Date Comments Results Review 08/04/2025 Encounter Details Date Type Department Care Team (Late st Contact Info) Description 08/04/2025 Results Follow-Up [facility] [address] [place] [address] Aye Mccollum NP [address] [place] [address] Social History Tobacco Use Types Packs/Day Years [...] st Contact Info) Description 08/15/2025 3:00 PM BOTTLE INSPECTOR Behavioral Health Visit [address] [address] Kelsy Méndez [address] [address] 08/22/2025 3:00 PM BOTTLE INSPECTOR Behavioral Health Visit [address] [address] Kelsy Méndez [address] [address] 08/29/2025 3:00 PM BOTTLE INSPECTOR Behavioral Health Visit [address] [address] Kelsy Méndez LCSW [address] [place] [address] 09/05/2025 3:00 PM BOTTLE INSPECTOR Behavioral Health Visit [address] [address] Kelsy Méndez [address] [address] documented as of this encounter Visit Diagnoses Not on filedocumented in this encounter Additional Health Concerns Assessment Noted Time PHQ-9 Depression Total Score: 20 025 2:55 PM PDT A Depression follow-up plan has been documented for the patient 07/06/2025 10:22 AM PDT documented as of this encounter Care Teams Restaurant Crew Person Relationship Specialty Start Date End Date Aye Mcclolum NP [address] [place] [address] PCP - General Adult Health 01/06/24 documented as of this encounter
--- OUTSIDE RECORDS SUMMARY | 2025-08-08 21:02 | XMS_ITS | Encounter Summary ---
Author Organization [facility] Address [address] [place] [address] Care Team Providers Care Certified First Assistant Name Role Phone Jeff Harris MATERIALS TECHNICIAN-HOSPITAL FELLOW Primary Care Provider Encounter Details Date Type Department Care Team (Late st Contact Info) Description 07/13/2021 Telephone [facility] [address] [place] [address] Neris Landis MD [address] [phone] Social History Tobacco Use Types Packs/Day Years Used Date Smoking Tobacco: Never Smokeless Tobacco: Never Alcohol Use Standard Drinks/Week Comments No 0 (1 standard drink = 0.6 oz pur e alcohol) Sex and Gender Information Value Date Recorded Sex Assigned at Not on file Legal Sex Male 6:53 PM CRYSTAL SLICER Gender Identity Not on file Sexual Orientation Not on file documented as of this encounter Plan of Treatment Not on file documented as of this encounter Visit Diagnoses Not on filedocumented in this encounter Additional Health Concerns Infection Onset Date Last Indicated Resolved Time COVID-19 Under Investigation 11/28/2022 11/28/2022 11/28/2022 10:05 PM CRYSTAL SLICER COVID-19 Confirmed 11/28/2022 11/28/2022 4:33 AM CRYSTAL SLICER documented as of this encounter Care Teams Certified First Assistant Relationship Specialty Start Date End Date Jeff Harris APRN-HOSPITAL FELLOW PCP - General 03/30/21 documented as of this encounter
--- OUTSIDE RECORDS SUMMARY | 2025-08-08 21:02 | XMS_ITS | Encounter Summary ---
Author Organization [facility] Address [address] [place] [address] Care Team Providers Care Food Mixer Name Role Phone Jeff Harris BULK FILLER-PROCED TECH Primary Care Provider Encounter Details Date Type Department Care Team (Late st Contact Info) Description 08/17/2021 Telephone [facility] [address] [place] [address] Neris Landis MD [address] [phone] Social History Tobacco Use Types Packs/Day Years Used Date Smoking Tobacco: Never Smokeless Tobacco: Never Alcohol Use Standard Drinks/Week Comments No 0 (1 standard drink = 0.6 oz pur e alcohol) Sex and Gender Information Value Date Recorded Sex Assigned at Not on file Legal Sex Male 6:53 PM BONE CHAR OPERATOR Gender Identity Not on file Sexual Orientation Not on file documented as of this encounter Plan of Treatment Not on file documented as of this encounter Visit Diagnoses Not on filedocumented in this encounter Additional Health Concerns Infection Onset Date Last Indicated Resolved Time COVID-19 Under Investigation 11/28/2022 11/28/2022 11/28/2022 10:05 PM BONE CHAR OPERATOR COVID-19 Confirmed 11/28/2022 11/28/2022 4:33 AM BONE CHAR OPERATOR documented as of this encounter Care Teams Food Mixer Relationship Specialty Start Date End Date Jeff Harris APRN-PROCED TECH PCP - General 03/30/21 documented as of this encounter
--- OUTSIDE RECORDS SUMMARY | 2025-08-08 21:02 | XMS_ITS | Encounter Summary ---
Author Organization [facility] Address [address] [place] [address] Care Team Providers Care Stave Planer Tender Name Role Phone Jeff Harris Delonte COMMERCIAL LENDER-RN ORTHOPEDIC Primary Care Provider Encounter Details Date Type Department Care Team (Late st Contact Info) Description 12/05/2021 Telephone [facility] [address] [place] [address] Neris Landis MD [address] [phone] Social History Tobacco Use Types Packs/Day Years Used Date Smoking Tobacco: Never Smokeless Tobacco: Never Alcohol Use Standard Drinks/Week Comments No 0 (1 standard drink = 0.6 oz pur e alcohol) PHQ-2 Answer Date Recorded PHQ2 TOTAL SCORE 3 11/12/2021 Sex and Gender Information Value Date Recorded Sex Assigned at Not on file Legal Sex Male 6:53 PM MORTGAGE FUNDER Gender Identity Not on file Sexual Orientation Not on file documented as of this encounter Plan of Treatment Not on file documented as of this encounter Visit Diagnoses Not on filedocumented in this encounter Additional Health Concerns Infection Onset Date Last Indicated Resolved Time COVID-19 Under Investigation 11/28/2022 11/28/2022 11/28/2022 10:05 PM MORTGAGE FUNDER COVID-19 Confirmed 11/28/2022 11/28/2022 4:33 AM MORTGAGE FUNDER documented as of this encounter Care Teams Stave Planer Tender Relationship Specialty Start Date End Date Jeff Harris, COMMERCIAL LENDER-RN ORTHOPEDIC PCP - General 03/30/21 documented as of this encounter
--- OUTSIDE RECORDS SUMMARY | 2025-08-08 21:02 | XMS_ITS | Encounter Summary ---
Author Organization [facility] Address [address] [place] [address] Care Team Providers Care Canoe Inspector Name Role Phone Jeff Harris POT FISHER-CHANGE ATTENDANT Primary Care Provider Encounter Details Date Type Department Care Team (Late st Contact Info) Description 07/09/2021 Telephone [facility] [address] [place] [address] Neris Landis MD [address] [phone] Social History Tobacco Use Types Packs/Day Years Used Date Smoking Tobacco: Never Smokeless Tobacco: Never Alcohol Use Standard Drinks/Week Comments No 0 (1 standard drink = 0.6 oz pur e alcohol) Sex and Gender Information Value Date Recorded Sex Assigned at Not on file Legal Sex Male 6:53 PM SUPERVISOR HISTOLOGY Gender Identity Not on file Sexual Orientation Not on file documented as of this encounter Plan of Treatment Not on file documented as of this encounter Visit Diagnoses Not on filedocumented in this encounter Additional Health Concerns Infection Onset Date Last Indicated Resolved Time COVID-19 Under Investigation 11/28/2022 11/28/2022 11/28/2022 10:05 PM SUPERVISOR HISTOLOGY COVID-19 Confirmed 11/28/2022 11/28/2022 4:33 AM SUPERVISOR HISTOLOGY documented as of this encounter Care Teams Canoe Inspector Relationship Specialty Start Date End Date Jeff Harris APRN-CHANGE ATTENDANT PCP - General 03/30/21 documented as of this encounter
--- OUTSIDE RECORDS SUMMARY | 2025-08-08 21:02 | XMS_ITS | Clinical Summary ---
Author Organization [facility] Address [address] [place] [address] Care Team Providers Care Studio Designer Name Role Phone Jeff Harris THERMOCOUPLE TESTER-SENIOR JAVA WEB DEVELOPER Primary Care Provider Source Comments [facility],non-owned Affiliates and Associated Physician Practices is amultiple site organization consisting of ambulatory clinics and hospital sitesin [place], [place], [place] and [place]. This disclosure is being madepursuant to the Care Everywhere program and may not contain all information available regarding this patient. Last updated 18.[facility] Allergies Active Allergy Reactions Criticality Noted Date [...] (Biktarvy) 50-200-25 MGIndications:Human immunodeficiency virus (HIV) disease ([facility]) Take 1 (one) tablet by [...] Diet Rx increased daily exercise as tolerated Dtpwoli-hi-ons 01/11/2022 AIN grade I 01/11/2022 Major depressive disorder, s melida episode with anxious distress 11/13/2021 Overview (11/13/2021): reports depression-like sx since onset of rectal issies. Reports anorexia, insomnia, and lack of motivation towards Pleasurable things. Assessment & Plan (11/21/2022 9:17 AM ANTIQUE FURNITURE REPRODUCER): Discussed need for sleep hygiene, regular exercise, and healthful diet Encouraged regualr talk therapy: Refer to [facility] Discussed resuming sertraline: Pt to consider Assessment & Plan (11/13/2021 10:15 AM ANTIQUE FURNITURE REPRODUCER): Begin Fluoxietine: FU in 3wk, 6wk, and three months to efficacy Begin talk therapy Gastroesophageal reflux disease without esophagi tis 05/03/2021 Assessment & Plan (11/21/2022 9:15 AM ANTIQUE FURNITURE REPRODUCER): DC omeprazole and begin pantoprazole Discussed importance of GERD-friendly diet and eating habits Assessment & Plan (05/03/2021 1:05 PM CDT): Omeprazole 20mg Daily Dietary change Grade IV hemorrhoids 04/12/2021 Assessment & Plan (04/12/2021 12:33 PM CDT): Continue Sitz bath, witch mario, and cool compress GI Consult at colonoscopy appt/ surg removal Colitis 04/12/2021 Assessment & Plan (11/13/2021 10:13 AM ANTIQUE FURNITURE REPRODUCER): continue current Tx, food journal,and isolation of triggers Keep FU appts with GI and Colorectal Vaccine counseling 04/12/2021 Overview (04/12/2021): Pt resistent to COVID vax rekated to fear Lift Electrician to risk VS bebefit of vaccine Vs Infection Assessment & Plan (11/21/2022 9:17 AM ANTIQUE FURNITURE REPRODUCER): Need pediatric record for HPV sent, Pt to complete Discussed risk V benefits of COVID vaccines Abscess of anal and rectal regions 03/16/2021 Assessment & Plan (11/13/2021 10:12 AM ANTIQUE FURNITURE REPRODUCER): I&D Augmentin X7 days Discussed home wound [...] Recorded Patient Health Questionnaire-2 Score 2 12/11/2023 [facility] - Occupational Stress [...] place to sleep or slept in a usp (including now)? Patient refused 01/16/2023 Sex and Gender Information Value Date Recorded Sex Assigned at Not on file Legal Sex Male 6:53 PM ANTIQUE FURNITURE REPRODUCER Gender Identity Not on file Sexual Orientation Not on file Last Filed Vital Signs Vital Sign Reading Time Taken Comments Blood Pressure 114/75 12/11/2023 8:25 AM ANTIQUE FURNITURE REPRODUCER Pulse 65 12/11/2023 8:25 AM ANTIQUE FURNITURE REPRODUCER Temperature 36.4 C (97.6 F) 12/11/2023 8:25 AM ANTIQUE FURNITURE REPRODUCER Respiratory Rate 18 08/28/2023 9:39 AM ANTIQUE FURNITURE REPRODUCER Oxygen Saturation 99% 08/28/2023 9:39 AM ANTIQUE FURNITURE REPRODUCER Inhaled Oxygen Concentration - - Weight 88.9 kg (196 lb) 12/11/2023 8:25 AM ANTIQUE FURNITURE REPRODUCER Height 160 cm (5' 3) 08/28/2023 9:39 AM ANTIQUE FURNITURE REPRODUCER Body Mass Index 34.72 08/28/2023 9:39 AM ANTIQUE FURNITURE REPRODUCER Plan of Treatment Health Maintenance Due Date [...] RNA QN PCR Routine 12/06/2022 12:00 PM ANTIQUE FURNITURE REPRODUCER Routine screening for STI (sexually transmitted infection) Immunity status testing from Last 3 Months or Most Recently Relevant to Health Maintenance Results * Hep C Antibody with reflex ([facility]) (12/06/2022 12:00 PM ANTIQUE FURNITURE REPRODUCER) Hepatitis C Antibody NON-REACTI VE NON-REACT [facility] Signal to Cut-Off 0.29 <1.00 [facility] Comment: HCV antibody was non-reactive. There is no laboratory evidence of HCV infection. In most cases, no further action is required. However, if recent HCV exposure is suspected, a test for HCV RNA (test code 73969) is suggested. For additional information please refer to http://education.Luxtech/faq/IBM17r2 (This link is being provided for informational/ educational purposes only.) Test Performed at: [facility] [id number] [id number] SUSANA NAQVI MD Blood BLOOD SPECIMEN / Unknown 12/06/2022 12:00 PM ANTIQUE FURNITURE REPRODUCER 12/07/2022 6:28 AM ANTIQUE FURNITURE REPRODUCER us [facility] - CHEMISTRY ORDERAB LES Final Result [facility] [address] [place] [address] from Last 3 Months or Most Recently Relevant to Health Maintenance Advance Directives * Full Code (Latest Code Status on File) Date Activated Date Inactivated Comments 12/27/2022 10:18 PM 01/17/2023 6:06 PM * Full Code Date Activated Date Inactivated Comments 03/16/2021 2:48 AM 03/16/2021 4:17 PM Care Teams Studio Designer Relationship Specialty Start Date End Date Jeff Harris APRN-CNP PCP - General 03/30/21
--- OUTSIDE RECORDS SUMMARY | 2025-08-08 21:02 | XMS_ITS | Encounter Summary ---
Author Organization [facility] Address [address] [place] [address] Care Team Providers Care Gis Coordinator Name Role Phone StevenJeff MONORAIL CHARGER OPERATOR-CATTLE MANAGER Primary Care Provider Encounter Details Date Type Department Care Team (Late st Contact Info) Description 03/11/2023 Telephone [facility] [address] [place] [phone] Rajendra Glynn MD [address] [facility] [place] [phone] Social History Tobacco Use Types [...] Date Recorded PHQ2 TOTAL SCORE 0 03/06/2023 [facility] - Occupational Stress [...] place to sleep or slept in a long-term (including now)? Patient refused 01/16/2023 Sex and Gender Information Value Date Recorded Sex Assigned at Not on file Legal Sex Male 6:53 PM WIND ENERGY ENGINEER Gender Identity Not on file Sexual Orientation [...] if the Called him. Pt callback is [phone] documented in this encounter Plan of Treatment [...] on filedocumented in this encounter Care Teams Gis Coordinator Relationship Specialty Start Date End Date Jeff Harris APRN-MICHAEL PCP - General 03/30/21 documented as of this encounter
== END 2025-08-08 21:14 | disposition home or self-care (01) ==
LOC: ANHED 21:00
PROVIDERS: Emergency Provider Emergency Medicine
DX: K04.7 Periapical abscess without sinus (principal)
CPT/HCPCS: 41800; 99283; A9270